=== PATIENT | female | born 1965 | race Caucasian/White ===

== ENCOUNTER 2016-11-25 08:33 | Outpatient (CLI) | payer OTHER | END 2016-11-25 08:34 | disposition home or self-care (01) | DX: Z12.31 Encounter for screening mammogram for malignant neoplasm of breast (principal) ==

== ENCOUNTER 2017-05-09 02:29 | Observation (INO) | payer OTHER ==
--- NOTE | 2017-05-09 02:43 | ED Physician Documentation ---
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 No: Diaphoresis, Nausea, Vomiting, Feeling faint / dizzy, General Weakness, Palpitations, Cough Similar symptoms before: Has not had sx before Recently seen: Not recently seen Review of Systems Constitutional: reports: Reviewed and negative Eyes: reports: Reviewed and negative Ears: reports: Reviewed and negative Nose: reports: Reviewed and negative Throat: reports: Reviewed and negative Cardiac: reports: Chest pain / pressure, Pedal edema (occasional LLE edema over past few months). denies: Calf pain Respiratory: reports: Dyspnea. 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 - Present Medications Home Medications: Ambulatory Orders Medication Instructions Recorded Confirmed Aspirin [Aspir 81] 162 mg PO DAILY 04/30/15 05/09/17 Calcium Carbonate/Vitamin D3 1 tab PO DAILY 04/30/15 05/09/17 [Calcium 600 + D Tablet] Cinnamon Bark [Cinnamon] 500 mg PO DAILY 04/30/15 05/09/17 Fexofenadine [Eli] 180 mg PO DAILY PRN 04/30/15 05/09/17 Flaxseed Oil [Flax Seed Oil] 1,000 mg PO DAILY 04/30/15 05/09/17 Milk Thistle 175 mg PO DAILY 04/30/15 05/09/17 Multivitamin [Multivitamins] 1 each PO DAILY 04/30/15 05/09/17 Topiramate 50 mg PO BID 04/30/15 05/09/17 Turmeric Root Extract [Turmeric] 500 mg PO DAILY 04/30/15 05/09/17 Ubidecarenone [Coq-10] 100 mg PO DAILY 04/30/15 05/09/17 Estradiol 0.05 mg Patch [Climara] 1 patch TOP UD 05/09/17 05/09/17 Lidocaine Patch 5% [Lidoderm Patch] 1 patch TOP UD 05/09/17 05/09/17 Naratriptan HCl [Amerge] 1 tab PO PRN PRN 05/09/17 05/09/17 - Allergies Allergies/Adverse Reactions: Allergies Allergy/AdvReac Type Severity Reaction Status Date / Time Silk tape AdvReac Intermediate Redness Uncoded 05/09/17 05:01 - Social History Does the pt smoke?: No Smoking Status: Never smoker Does the pt drink ETOH?: Yes Does the pt have substance abuse?: No - Immunizations Immunizations are current?: Yes - POLST Patient has POLST: No PD ED PE NORMAL - Vitals Vital signs reviewed: Yes - General General: Alert and oriented X 3, Well developed/nourished, Other (painful distress) - HEENT HEENT: PERRL, EOMI, Moist mucous membranes - Neck Neck: Supple, no meningeal sign - Cardiac Cardiac: RRR, No murmur, No gallop, No rub - Respiratory Respiratory: No respiratory distress, Clear bilaterally - Abdomen Abdomen: Soft, Non tender - Derm Derm: Normal color, Warm and dry - Extremities Extremities: No edema - Neuro Neuro: Alert and oriented X 3 Results - Vitals Vitals: Vital Signs - 24 hr 05/09/17 05/09/17 02:32 03:45 Temperature 36.8 C Heart Rate 83 60 Respiratory 20 18 Rate Blood Pressure 132/78 H 128/59 L O2 Saturation 96 98 Oxygen O2 Source Room air - EKG (time done) No standard instances Rate: Rate (enter#) (54) Rhythm: NSR [place]: Normal Intervals: Normal [place] QRS: Normal Ischemia: Normal ST segments - Labs Labs: Laboratory Tests 05/09/17 05/09/17 05/09/17 02:40 02:40 02:40 WBC 8.2 RBC 4.09 L Hgb 12.4 Hct 36.7 L MCV 89.8 MCH 30.3 MCHC 33.7 RDW 14.3 Plt Count 206 MPV 9.6 Neut # 4.9 Lymph # 2.3 [place] # 0.7 Eos # 0.2 Baso # 0.0 Absolute Nucleated RBC 0.00 Nucleated RBCs 0.0 ESR D-Dimer 260.7 H Sodium 139 Potassium 3.3 L Chloride 107 Carbon Dioxide 24 Anion Gap 8.0 BUN 16 Creatinine 0.8 Estimated GFR (MDRD) 76 L Glucose 113 H Calcium 8.9 Magnesium Total Bilirubin 0.5 AST 25 ALT 19 Alkaline Phosphatase 68 Troponin I C-Reactive Protein Total Protein 6.8 Albumin 3.9 Globulin 2.9 Albumin/Globulin Ratio 1.3 Lipase 30 05/09/17 05/09/17 05/09/17 02:40 02:40 02:40 WBC RBC Hgb Hct MCV MCH MCHC RDW Plt Count MPV Neut # Lymph # [place] # Eos # Baso # Absolute Nucleated RBC Nucleated RBCs ESR 8 D-Dimer Sodium Potassium Chloride Carbon Dioxide Anion Gap BUN Creatinine Estimated GFR (MDRD) Glucose Calcium Magnesium Total Bilirubin AST ALT Alkaline Phosphatase Troponin I < 0.04 C-Reactive Protein 1.0 Total Protein Albumin Globulin Albumin/Globulin Ratio Lipase 05/09/17 02:40 WBC RBC Hgb Hct MCV MCH MCHC RDW Plt Count MPV Neut # Lymph # [place] # Eos # Baso # Absolute Nucleated RBC Nucleated RBCs ESR D-Dimer Sodium Potassium Chloride Carbon Dioxide Anion Gap BUN Creatinine Estimated GFR (MDRD) Glucose Calcium Magnesium 2.2 Total Bilirubin AST ALT Alkaline Phosphatase Troponin I C-Reactive Protein Total Protein Albumin Globulin Albumin/Globulin Ratio Lipase - Rads (name of study) chest xray Radiology: Prelim report reviewed, See rad report CT chest IV contrast Radiology: Prelim report reviewed, See rad report PD MEDICAL DECISION MAKING - ED course Complexity details: reviewed results, re-evaluated patient, considered differential, d/w patient ED course: Patient had partial and transient relief with 2mg IV morphine, but pain would consistently return when she would lay flat. 4mg IV morphine given prior to her CT scan, and upon returning from CT, patient was in obvious painful distress. I offered to give her more pain medication, but she declined, says she gets better if she sits straight up in the bed. Despite unremarkable w/u thus far, she becomes very symptomatic with lying down; will admit for further evaluation Departure - Departure Disposition: ED Place in Observation Clinical Impression: Chest pain Condition: Good Discharge Date/Time: 05/09/17 05:20
[2017-05-09] MEDS ORDERED: MORPHINE 2 MG/ML SYRINGE IVP STA ×2 (02:58→03:38)
[2017-05-09] MEDS ORDERED: MORPHINE 2 MG/ML SYRINGE ONE ×3 (03:01→05:16)
[2017-05-09 03:06] LABS: BASOPHILS % (AUTO) 0.3 %; EOSINOPHILS # (AUTO) 0.2 10^3/uL (0.0-0.7); EOSINOPHILS % (AUTO) 2.6 %; HCT - HEMATOCRIT 36.7 % (37.0-47.0); HGB - HEMOGLOBIN 12.4 g/dL (12.0-16.0); LYMPHOCYTES # (AUTO) 2.3 10^3/uL (1.5-3.5); LYMPHOCYTES % (AUTO) 28.6 %; MEAN CORPUSCULAR HEMOGLOBIN 30.3 pg (27.0-31.0); MEAN CORPUSCULAR HGB CONC 33.7 g/dL (32.0-36.0); MEAN CORPUSCULAR VOLUME 89.8 fL (81.0-99.0); MEAN PLATELET VOLUME 9.6 fL (7.9-10.8); MONOCYTES # (AUTO) 0.7 10^3/uL (0.0-1.0); MONOCYTES % (AUTO) 8.9 %; NEUTROPHILS # (AUTO) 4.9 10^3/uL (1.5-6.6); NEUTROPHILS % (AUTO) 59.6 %; RED BLOOD COUNT 4.09 10^6/uL (4.20-5.40); RED CELL DISTRIBUTION WIDTH 14.3 % (12.0-15.0); UNCORRECTED WHITE BLOOD COUNT 8.2 x10^3/uL; WHITE BLOOD COUNT 8.2 x10^3/uL (4.8-10.8)
[2017-05-09 03:19] LABS: ALBUMIN/GLOBULIN RATIO 1.3 (1.0-2.2); BILIRUBIN,TOTAL 0.5 mg/dL (0.2-1.0); CALCIUM 8.9 mg/dL (8.5-10.3); CREATININE 0.8 mg/dL (0.4-1.0); POTASSIUM 3.3 mmol/L (3.5-5.0); TOTAL PROTEIN 6.8 g/dL (6.7-8.2)
--- NOTE | 2017-05-09 03:27 | XRAY Preliminary Report ---
Exam: XR Chest 2 View PA/LAT IMPRESSION: Normal 2-view chest radiography. [facility] SITE ID: [id number]
--- NOTE | 2017-05-09 03:29 | XRAY Report ---
EXAM: CHEST RADIOGRAPHY EXAM DATE: 05/09/2017 03:15 AM. CLINICAL HISTORY: Chest pain. COMPARISON: 09/27/2011. TECHNIQUE: 2 views. FINDINGS: Lungs/Pleura: No focal opacities evident. No pleural effusion. No pneumothorax. Normal volumes. Mediastinum: Heart and mediastinal contours are unremarkable. Other: Multilevel degenerative changes within the spine. IMPRESSION: Normal 2-view chest radiography. [facility] Referring Provider Line: [phone] SITE ID: [id number]
[2017-05-09] MEDS ORDERED: IOPAMIDOL-300 100 ML VIAL IVP ONE (04:02)
--- NOTE | 2017-05-09 04:32 | CT Preliminary Report ---
Exam: CT Chest Angio (AORTA) IMPRESSION: 1. Aorta is without acute abnormality. 2. No incidental pulmonary embolism. 3. No acute pulmonary parenchymal abnormality. Mild biapical pleural and parenchymal scarring. [facility] SITE ID: [id number]
--- NOTE | 2017-05-09 04:35 | CT Report ---
EXAM: CT ANGIOGRAM CHEST EXAM DATE: 05/09/2017 04:05 AM. CLINICAL HISTORY: Chest pain along the right breast COMPARISON: None. TECHNIQUE: Routine helical imaging was performed through the chest in the arterial phase. IV contrast : Yes. Reconstructions: Coronal, sagittal, and 3D MIP reconstructions of the aorta. FINDINGS: Vascular Structures: Normal. No aneurysm, dissection, or significant atherosclerotic disease of the t horacic aorta. The visualized pulmonary arteries are within normal limits. Lungs/Pleura: No consolidation, nodules, or edema. No effusions or pneumothorax. Mediastinum: Normal. No cardiac enlargement or adenopathy. Upper Abdomen: There is a small low-density focus within the superior portion of liver segment 2, sta ble from the prior exam, representing a cyst. Bones: There is moderate multilevel degenerative change within the spine. No definite suspicious bony lesions are noted. IMPRESSION: 1. Aorta is without acute abnormality. 2. No incidental pulmonary embolism. 3. No acute pulmonary parenchymal abnormality. Mild biapical pleural and parenchymal scarring. [facility] Referring Provider Line: [phone] SITE ID: [id number]
[2017-05-09] MEDS ORDERED: ONDANSETRON ODT 4 MG TABLET TL PRN (04:46)
[2017-05-09] MEDS ORDERED: SODIUM CHLORIDE FLUSH 0.9% 10 ML SYRINGE IVP PRN (04:46)
[2017-05-09] MEDS ORDERED: ACETAMINOPHEN 325 MG TABLET PO PRN (04:46)
[2017-05-09] MEDS ORDERED: KETOROLAC 15 MG/ML VIAL IVP STA (04:53)
[2017-05-09] MEDS ORDERED: GI COCKTAIL 120 ML BOTTLE PO SCH (05:00)
--- NOTE | 2017-05-09 05:01 | HISTORY & PHYSICAL EXAMINATION ---
Chief Complaint - Chief Complaint Chief Complaint: chest pain Chest Pain Admission HPI - Admitted From Admitted from: ED - History Obtained From History obtained from: Patient - History of Present Illness HPI Comment/Other: patient is a 51-year-old white female who was in her normal state of heal until approximately 1:30 this morning. She was awakened from sleep by the sudden onset of severe right-sided, sharp, chest pain. She describes the pain as 10+ out of 10.. She presented to the emergency r for evaluation. She received several doses of IV MORPHINEWHICH BARELY HELPEDD_DIMER WAS ELEVATED< SO CT angiogram was performed.no PE or aneurysm is seen. The patient's pain has been poorly controlled, so she is being admitte for further workup and treatment. The pain is much worse if she tries to lay down or leans forward. It is best sitting or standing completely upright.. She notes she has had a nonproductive cough for the last few days. The pain is mainly in her right up Upper chest and radiates into her upper back. She denies recent fever or chills, headaches or dizziness, new eye or ear symptoms. She denies sore throat. She denies palpitations or shortness Of breath. She denies abdominal pain, nausea or vomiting, heartburn,, diarrhea or constipation, dysuria. past medical history: Hysterectomy Arthritis, chronic back pain, followed by orthopedics.. On no pain medications. History of urethroplasty with , 2014 Status post arthroscopic surgery, colonoscopy, tubal ligation Migraines Allergies to grass, animals,, etc. Medications: Amerge one tab when necessary headache Lidoderm patch daily Estradiol patch 0.05 mg Topamax 50 mg twice a day Eli 180 mg daily when necessary Aspirin 162 mg daily Coenzyme Q10 100 mg daily Turmeric 500 mg daily Multivitamin daily B12 daily milk thistle 175 mg daily Flax oil 1000 mg daily Cinnamon bark 500 mg daily Calciu plus D1 daily patient reports she does not take HCTZ Allergies: Silk tape, grasses, trees, and animal dander, et cetera. Family history:mother with renal cancer, and adrenal problems.. Father with esophageal cancer. Brother had thyroid and bone cancer. Social history: She drinks wine occasionally, about 5 glasses per week.. She denies drug use. She previously smoked, but quit 30 years ago. 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 - Social History Does the pt smoke?: No Smoking Status: Former smoker Does the pt drink ETOH?: Yes ETOH Use: Wine Does the pt have substance abuse?: No - POLST Patient has POLST: No - Family History Family History: Mother: , Cancer, Father: , Cancer, Brother: Cancer Meds/Allgy - Home Medications Home Medications: Ambulatory Orders Medication Instructions Recorded Confirmed Aspirin [Aspir 81] 162 mg PO DAILY 04/30/15 05/09/17 Calcium Carbonate/Vitamin D3 1 tab PO DAILY 04/30/15 05/09/17 [Calcium 600 + D Tablet] Cinnamon Bark [Cinnamon] 500 mg PO DAILY 04/30/15 05/09/17 Fexofenadine [Eli] 180 mg PO DAILY PRN 04/30/15 05/09/17 Flaxseed Oil [Flax Seed Oil] 1,000 mg PO DAILY 04/30/15 05/09/17 Milk Thistle 175 mg PO DAILY 04/30/15 05/09/17 Multivitamin [Multivitamins] 1 each PO DAILY 04/30/15 05/09/17 Topiramate 50 mg PO BID 04/30/15 05/09/17 Turmeric Root Extract [Turmeric] 500 mg PO DAILY 04/30/15 05/09/17 Ubidecarenone [Coq-10] 100 mg PO DAILY 04/30/15 05/09/17 Estradiol 0.05 mg Patch [Climara] 1 patch TOP UD 05/09/17 05/09/17 Lidocaine Patch 5% [Lidoderm Patch] 1 patch TOP UD 05/09/17 05/09/17 Naratriptan HCl [Amerge] 1 tab PO PRN PRN 05/09/17 05/09/17 - Allergies Allergies/Adverse Reactions: Allergies Allergy/AdvReac Type Severity Reaction Status Date / Time Silk tape AdvReac Intermediate Redness Uncoded 05/09/17 05:01 Exam - Vital Signs Reviewed Vital Signs: Yes Vital Signs: Vital Signs x48h Temp Pulse Resp BP Pulse Ox 05/09/17 04:50 58 L 16 97 05/09/17 03:45 60 18 128/59 L 98 05/09/17 02:32 36.8 C 83 20 132/78 H 96 on exam, the patient is sitting bolt upright in bed .. Head: Normocephalic, atraumatic. Eyes: PERRLA,, EOMI, anicteric. Ears: TMs and canals are normal. Pharynx: Is clear. Mucosa is normal. Neck: Is supple, without obvious lymphadenopathy, JVD, thyromegaly, bruits. Cardiac exam: Shows regular rate and rhythm, with normal S1 and S2. No murmurs, rubs, gallops are noted,, the patient could not cooperate with position changes. Lungs: Are clear to auscultation, without rales, rhonchi,, wheezes. Abdomen: Is soft and nontender, with normal bowel sounds. There is no guarding or rebound, and no obvious masses. Extremities: Show no cyanosis, clubbing, edema. Neurologic: Patient is alert and oriented. She is quite irritable.. Otherwise, exam is grossly nonfocal. Results - Lab Results Lab results reviewed: Yes Fish Bones: 05/09/17 02:40 05/09/17 02:40 Other Lab Results: Lab Results x24hrs 05/09/17 05/09/17 05/09/17 Range/Units 02:40 02:40 02:40 WBC (4.8-10.8) x10^3/uL RBC (4.20-5.40) 10^6/uL Hgb (12.0-16.0) g/dL Hct (37.0-47.0) % MCV (81.0-99.0) fL MCH (27.0-31.0) pg MCHC (32.0-36.0) g/dL RDW (12.0-15.0) % Plt Count (130-450) 10^3/uL MPV (7.9-10.8) fL Neut # (1.5-6.6) 10^3/uL Lymph # (1.5-3.5) 10^3/uL [place] # (0.0-1.0) 10^3/uL Eos # (0.0-0.7) 10^3/uL Baso # (0.0-0.1) 10^3/uL Absolute Nucleated RBC x10^3/uL Nucleated RBCs /100WBC D-Dimer (200.0-255.0) ng/mL Sodium 139 (135-145) mmol/L Potassium 3.3 L (3.5-5.0) mmol/L Chloride 107 (101-111) mmol/L Carbon Dioxide 24 (21-32) mmol/L Anion Gap 8.0 (6-13) BUN 16 (6-20) mg/dL Creatinine 0.8 (0.4-1.0) mg/dL Estimated GFR (MDRD) 76 L (>89) Glucose 113 H (70-100) mg/dL Calcium 8.9 (8.5-10.3) mg/dL Total Bilirubin 0.5 (0.2-1.0) mg/dL AST 25 (10-42) IU/L ALT 19 (10-60) IU/L Alkaline Phosphatase 68 (42-121) IU/L Troponin I < 0.04 (<0.49) ng/mL C-Reactive Protein 1.0 (0-1.0) mg/dL Total Protein 6.8 (6.7-8.2) g/dL Albumin 3.9 (3.2-5.5) g/dL Globulin 2.9 (2.1-4.2) g/dL Albumin/Globulin Ratio 1.3 (1.0-2.2) Lipase 30 (22-51) U/L 05/09/17 05/09/17 Range/Units 02:40 02:40 WBC 8.2 (4.8-10.8) x10^3/uL RBC 4.09 L (4.20-5.40) 10^6/uL Hgb 12.4 (12.0-16.0) g/dL Hct 36.7 L (37.0-47.0) % MCV 89.8 (81.0-99.0) fL MCH 30.3 (27.0-31.0) pg MCHC 33.7 (32.0-36.0) g/dL RDW 14.3 (12.0-15.0) % Plt Count 206 (130-450) 10^3/uL MPV 9.6 (7.9-10.8) fL Neut # 4.9 (1.5-6.6) 10^3/uL Lymph # 2.3 (1.5-3.5) 10^3/uL [place] # 0.7 (0.0-1.0) 10^3/uL Eos # 0.2 (0.0-0.7) 10^3/uL Baso # 0.0 (0.0-0.1) 10^3/uL Absolute Nucleated RBC 0.00 x10^3/uL Nucleated RBCs 0.0 /100WBC D-Dimer 260.7 H (200.0-255.0) ng/mL Sodium (135-145) mmol/L Potassium (3.5-5.0) mmol/L Chloride (101-111) mmol/L Carbon Dioxide (21-32) mmol/L Anion Gap (6-13) BUN (6-20) mg/dL Creatinine (0.4-1.0) mg/dL Estimated GFR (MDRD) (>89) Glucose (70-100) mg/dL Calcium (8.5-10.3) mg/dL Total Bilirubin (0.2-1.0) mg/dL AST (10-42) IU/L ALT (10-60) IU/L Alkaline Phosphatase (42-121) IU/L Troponin I (<0.49) ng/mL C-Reactive Protein (0-1.0) mg/dL Total Protein (6.7-8.2) g/dL Albumin (3.2-5.5) g/dL Globulin (2.1-4.2) g/dL Albumin/Globulin Ratio (1.0-2.2) Lipase (22-51) U/L EKG:shows normal sinus rhythm at a rate of 54. There are no obvious acute ST-T changes chest x-ray:Normal. Chest CT angiogram:mild biapical pleural and parenchymal scarring. No PE. Aorta normal. ARRA - Anticipated LOS Anticipated Stay Length: Less than 2 midnights - AMI - Statin at Admit Aspirin Prescribed on Admit: Yes CP/CHF Plan - Echo Plan to order an echo?: Yes - Plan Patient Problems: All Active Problems Chest pain (Acute) Plan: #1. Chest pain. History this patient presents with sharp chest pain,, worse on the right side. CT scan shows no evidence of PE or aneurysm, or other significant abnormality. The patient continued to have severe chest pain in the emergency room. -Admit for observation and further Workup. -pot reliner. -Check serial EKGs and troponins. -Trial IV Toradol. -Echocardiogram. ( previous echo was done [address] [facility] in [place].) -GI cocktail, and daily Protonix. Consider further GI workup if cardiac workup unrevealing. family history is positive for esophageal cancer #2. Psychiatric. Patient reported increased anxiety lately.she is quite irritable today,, but is also quite uncomfortable. #3. Chronic pain. patient denies use of medications at home for this. She is followed by orthopedics. #4. Hypertension. patient denies history of this, and does not take HCTZ. #5. Hypokalemia. -of uncertain cause. Replace. -Replace IV. #6. Hematologic. Patient is mildly anemic. -Check stool cards. #7. CODE STATUS:a full code. #8. DVT prophylaxis: Subcutaneous heparin. tthis visit took approximately 60 minutes,, to review patient's old records, current test results, review case with the ER MKristen,, interview and examine the patient,, and write orders.
[2017-05-09] MEDS ORDERED: KETOROLAC 30 MG/ML VIAL ONE (05:15)
[2017-05-09] MEDS ORDERED: MAG HYDROX/AL HYDROX/SIMETH 30 ML UDC ONE ×2 (05:16→05:43)
[2017-05-09] MEDS: MORPHINE 2 MG/ML SYRINGE IVP PRN ×2 (05:17→09:08)
[2017-05-09] MEDS ORDERED: PHENobarb/HYOSCY/ATROPINE/SCOP 5 ML SYRINGE PO ONE (05:43)
[2017-05-09] MEDS ORDERED: LIDOCAINE VISCOUS 2% 15 ML UDC MM ONE (05:43)
[2017-05-09] MEDS: SODIUM CHLORIDE FLUSH 0.9% 10 ML SYRINGE IVP SCH ×2 (06:17→12:44)
[2017-05-09] MEDS ORDERED: PANTOPRAZOLE 40 MG TABLET PO SCH (07:00)
[2017-05-09 08:57] VITALS: BP 102/62
[2017-05-09] MEDS ORDERED: HEPARIN 5,000 UNIT/ML VIAL SUBQ SCH (09:00)
[2017-05-09] MEDS ORDERED: POTASSIUM CHLOR 10 MEQ/100 ML 100 ML IV SCH (09:00)
[2017-05-09] MEDS ORDERED: metOLazone 2.5 MG TABLET PO SCH (10:00)
[2017-05-09] MEDS ORDERED: KETOROLAC 30 MG/ML VIAL IVP PRN (10:03)
[2017-05-09] MEDS ORDERED: POTASSIUM CHLORIDE 10 MEQ CAPSULE PO SCH (12:00)
[2017-05-09] MEDS ORDERED: ACETAMINOPHEN 1,000 MG/100 ML 100 ML IV SCH (12:00)
--- NOTE | 2017-05-09 15:17 | Discharge Plan ---
Discharge Plan Disposition: 01 Home, Self Care Condition: Good Prescriptions: Naproxen [Naprosyn] 500 mg PO BID #15 tablet Diet: Regular Activity Restrictions: Activity as Tolerated Shower Restrictions: No Driving Restrictions: No Weight Bearing: Full Weight Additional Instructions or Follow Up instructions: Use the Naprosyn 500 mg three times a day for two more days and then 2 times a dy for 5-7 days. Use heat if needed. Use a cough suppressant as needed. Follow up here or with a provider if not getting better. No Smoking: If you smoke, Please STOP! Call for help.
--- NOTE | 2017-05-10 18:33 | DISCHARGE SUMMARY ---
DATE OF ADMISSION: 05/09/2017 DATE OF DISCHARGE: 05/09/2017 PRIMARY CARE PROVIDER: None in the area. ADMISSION DIAGNOSES: 1. Chest pain. 2. Anxiety. 3. Hypertension. 4. Hypokalemia. 5. Mild anemia. 6. Hypertension. DISCHARGE DIAGNOSES: 1. Chest pain, myocardial infarction ruled out. 2. Pleuritis undetermined etiology, possible inhalation. 3. Anxiety. 4. Chronic pain. 5. Hypertension. 6. Hypokalemia with replacement. 7. Mild anemia undetermined etiology, very mild, not clinically significant. HOSPITAL COURSE AND MANAGEMENT: The initial presentation, hospital emergency evaluation and hospital plan is well described in the History and Physical, see copy of same. Added history: The patient states that pain did start at the middle of the night and was localized to the right upper anterior rib cage in a small area and she had extremely intense pain with coughing, but pain all the time. It was a severe, sharp pain. The patient had the workup noted in the emergency department including a CTA of the chest which was negative. The patient had improvement from the Toradol given, she was also given intravenous Tylenol. The patie nt had negative troponin's x2. The patient had Naprosyn 500 at home and she is going to take this. The patient is examined on the day of discharge and found no other abnormalities, in particular there was no pleural friction rub, no rales or rhonchi on lung exam. Heart exam normal sinus without murmu r. Patient also had an echocardiogram which was normal and preliminary echocardiogram showed an EF of 70-75% with normal diastolic function. She did have moderate to severe increase in left atrial volum e and moderate to severe right atrial enlargement. No clinically significant valvular disease. The patient is discharged home. Time spent less than 30 minutes. The patient is referred to PCP, if her symptoms get worse she is to return here promptly. She said [facility]on [facility] will, she just lives around the corner. JOB #: [id number] EXT JOB #:[id number]
== END 2017-05-09 15:45 | disposition home or self-care (01) ==
LOC: ED 02:29 → MS 04:46 → OBS 08:27
PROVIDERS: ADMIT Internal Medicine; ATTEND Internal Medicine
DX: R07.81 Pleurodynia (principal); R09.1 Pleurisy; I11.9 Hypertensive heart disease without heart failure; Z79.82 Long term (current) use of aspirin; F41.9 Anxiety disorder, unspecified; G89.29 Other chronic pain; E87.6 Hypokalemia; Z87.891 Personal history of nicotine dependence; Z80.0 Family history of malignant neoplasm of digestive organs
CPT/HCPCS: 36415; 71020; 71275; 80053; 83690; 83735; 84484; 85025; 85379; 85651; 86140; 93005; 93306; 96374; 96375; 96376; 99234; 99284; 99285; A9270; J0131; Q9967; 82270

== ENCOUNTER 2017-07-22 14:33 | Outpatient (CLI) | payer OTHER ==
[2017-07-22 13:07] LABS: BASOPHILS % (AUTO) 0.7 %; EOSINOPHILS # (AUTO) 0.1 10^3/uL (0.0-0.7); EOSINOPHILS % (AUTO) 2.5 %; HCT - HEMATOCRIT 37.7 % (37.0-47.0); HGB - HEMOGLOBIN 12.6 g/dL (12.0-16.0); LYMPHOCYTES # (AUTO) 1.5 10^3/uL (1.5-3.5); LYMPHOCYTES % (AUTO) 34.1 %; MEAN CORPUSCULAR HEMOGLOBIN 30.2 pg (27.0-31.0); MEAN CORPUSCULAR HGB CONC 33.4 g/dL (32.0-36.0); MEAN CORPUSCULAR VOLUME 90.4 fL (81.0-99.0); MEAN PLATELET VOLUME 10.5 fL (7.9-10.8); MONOCYTES # (AUTO) 0.3 10^3/uL (0.0-1.0); MONOCYTES % (AUTO) 7.5 %; NEUTROPHILS # (AUTO) 2.4 10^3/uL (1.5-6.6); NEUTROPHILS % (AUTO) 55.2 %; RED BLOOD COUNT 4.17 10^6/uL (4.20-5.40); UNCORRECTED WHITE BLOOD COUNT 4.4 x10^3/uL; WHITE BLOOD COUNT 4.4 x10^3/uL (4.8-10.8)
[2017-07-22 13:22] LABS: ALBUMIN/GLOBULIN RATIO 1.6 (1.0-2.2); BILIRUBIN,TOTAL 0.5 mg/dL (0.2-1.0); BUN - BLOOD UREA NITROGEN 19 mg/dL (6-20); CALCIUM 9.1 mg/dL (8.5-10.3); CARBON DIOXIDE - CO2 27 mmol/L (21-32); CHLORIDE 104 mmol/L (101-111); CHOL/HDL RATIO 3.4 (<4.4); CHOLESTEROL 206 mg/dL; CREATININE 0.7 mg/dL (0.4-1.0); GFR - MDRD 88 (>89); GLUCOSE 94 mg/dL (70-100); HDL CHOLESTEROL 61 mg/dL; LDL/HDL RATIO 2.1 (<4.4); POTASSIUM 4.1 mmol/L (3.5-5.0); SODIUM 139 mmol/L (135-145); TOTAL PROTEIN 6.7 g/dL (6.7-8.2); TRIGLYCERIDES 68 mg/dL; VLDL CHOLESTEROL 14 mg/dL
== END 2017-07-22 14:34 | disposition home or self-care (01) ==
LOC: LAB.R 14:33
PROVIDERS: ATTEND Nurse Practitioner Primary Care
DX: Z00.00 Encounter for general adult medical examination without abnormal findings (principal); R50.9 Fever, unspecified; Z72.89 Other problems related to lifestyle; R09.1 Pleurisy; E87.6 Hypokalemia; Z79.899 Other long term (current) drug therapy; E78.5 Hyperlipidemia, unspecified
CPT/HCPCS: 80053; 80061; 84443; 85025; 86803

== ENCOUNTER 2018-03-28 10:10 | Outpatient (CLI) | payer OTHER | END 2018-03-28 10:11 | disposition home or self-care (01) | LOC: DI 10:10 | PROVIDERS: ATTEND Nurse Practitioner Primary Care | DX: Z53.9 Procedure and treatment not carried out, unspecified reason (principal) ==

== ENCOUNTER 2018-07-25 08:00 | Outpatient (CLI) | payer OTHER ==
[2018-07-25 16:45] LABS: BASOPHILS % (AUTO) 0.6 %; EOSINOPHILS # (AUTO) 0.1 10^3/uL (0.0-0.7); EOSINOPHILS % (AUTO) 2.8 %; HGB - HEMOGLOBIN 13.3 g/dL (12.0-16.0); LYMPHOCYTES # (AUTO) 1.4 10^3/uL (1.5-3.5); LYMPHOCYTES % (AUTO) 31.6 %; MEAN CORPUSCULAR HEMOGLOBIN 30.3 pg (27.0-31.0); MEAN CORPUSCULAR HGB CONC 33.2 g/dL (32.0-36.0); MEAN CORPUSCULAR VOLUME 91.5 fL (81.0-99.0); MEAN PLATELET VOLUME 10.9 fL (7.9-10.8); MONOCYTES # (AUTO) 0.3 10^3/uL (0.0-1.0); MONOCYTES % (AUTO) 7.6 %; NEUTROPHILS # (AUTO) 2.5 10^3/uL (1.5-6.6); NEUTROPHILS % (AUTO) 57.4 %; PLT - PLATELET COUNT 170 10^3/uL (130-450); RED BLOOD COUNT 4.37 10^6/uL (4.20-5.40); RED CELL DISTRIBUTION WIDTH 13.9 % (12.0-15.0); WHITE BLOOD COUNT 4.4 x10^3/uL (4.8-10.8)
[2018-07-25 16:59] LABS: ALBUMIN 4.3 g/dL (3.2-5.5); ALBUMIN/GLOBULIN RATIO 1.6 (1.0-2.2); ALKALINE PHOSPHATASE 68 IU/L (42-121); ALT ALANINE AMINOTRANSFERASE 18 IU/L (10-60); AST ASPARTATE AMINOTRANSFERASE 20 IU/L (10-42); BILIRUBIN,TOTAL 0.8 mg/dL (0.2-1.0); BUN - BLOOD UREA NITROGEN 17 mg/dL (6-20); CALCIUM 9.1 mg/dL (8.5-10.3); CARBON DIOXIDE - CO2 25 mmol/L (21-32); CHLORIDE 106 mmol/L (101-111); CHOL/HDL RATIO 3.2 (<4.4); CHOLESTEROL 199 mg/dL; CREATININE 0.8 mg/dL (0.4-1.0); GFR - MDRD 75 (>89); GLUCOSE 98 mg/dL (70-100); HDL CHOLESTEROL 63 mg/dL; LDL CHOLESTEROL,CALCULATED 118 mg/dL; LDL/HDL RATIO 1.9 (<4.4); SODIUM 139 mmol/L (135-145); VLDL CHOLESTEROL 18 mg/dL
== END 2018-07-25 08:01 ==
LOC: LAB.R 08:00
PROVIDERS: ATTEND Nurse Practitioner Primary Care
DX: Z79.899 Other long term (current) drug therapy (principal); E78.5 Hyperlipidemia, unspecified
CPT/HCPCS: 80053; 80061; 83721; 85025

== ENCOUNTER 2019-02-23 08:10 | Outpatient (CLI) | payer OTHER ==
--- NOTE | 2019-02-26 09:03 | Mammography Report ---
Reason: SCREENING MAMMO Procedure Date: 02/23/2019 Accession Number: [id number] / [id number] Procedure: KAIT - Screening Mammo w/Keyshawn CPT Code: FULL RESULT: EXAM: Screening Mammo w/Keyshawn DATE: 02/23/2019 8:39 AM CLINICAL HISTORY: Routine screening. No reported personal or family history of breast cancer. TECHNIQUE: (B) - Bilateral CC and MLO views were obtained. COMPARISON: 11/25/2016 through 06/13/2009 PARENCHYMAL PATTERN: (A) - The breasts demonstrate scattered fibroglandular densities bilaterally. FINDINGS: Bilateral breasts There are no suspicious masses, calcifications, or areas of distortion. IMPRESSION: Negative examination. BI-RADS category 1. RECOMMENDATION: (ANNUAL) - Recommend routine annual screening mammography. BI-RADS CATEGORY: (1) - Negative. STANDARD QUALIFYING STATEMENTS: 1. This examination was not reviewed with the aid of Computer-Aided Detection (CAD). 2. A negative or benign imaging report should not preclude biopsy if clinically suspicious findings are present. 3. Dense breasts may obscure an underlying neoplasm. 4. This examination was reviewed with the aid of 3D breast imaging (tomosynthesis).
== END 2019-02-23 08:11 | disposition home or self-care (01) ==
LOC: DI 08:10
PROVIDERS: ATTEND Obstetrics & Gynecology
DX: Z12.31 Encounter for screening mammogram for malignant neoplasm of breast (principal)
CPT/HCPCS: 77063; 77067

== ENCOUNTER 2019-06-11 15:15 | Outpatient (CLI) | payer OTHER ==
[2019-06-11 15:46] LABS: BASOPHILS % (AUTO) 0.7 %; EOSINOPHILS # (AUTO) 0.1 10^3/uL (0.0-0.7); EOSINOPHILS % (AUTO) 1.1 %; HGB - HEMOGLOBIN 13.1 g/dL (12.0-16.0); LYMPHOCYTES % (AUTO) 31.9 %; MEAN CORPUSCULAR HEMOGLOBIN 30.6 pg (27.0-31.0); MEAN CORPUSCULAR HGB CONC 32.8 g/dL (32.0-36.0); MEAN CORPUSCULAR VOLUME 93.2 fL (81.0-99.0); MEAN PLATELET VOLUME 11.3 fL (7.9-10.8); MONOCYTES # (AUTO) 0.4 10^3/uL (0.0-1.0); MONOCYTES % (AUTO) 6.5 %; NEUTROPHILS # (AUTO) 3.6 10^3/uL (1.5-6.6); NEUTROPHILS % (AUTO) 59.5 %; PLT - PLATELET COUNT 176 10^3/uL (130-450); RED BLOOD COUNT 4.28 10^6/uL (4.20-5.40); WHITE BLOOD COUNT 6.1 x10^3/uL (4.8-10.8)
[2019-06-11 16:11] LABS: CALCIUM 9.7 mg/dL (8.5-10.3); CREATININE 0.7 mg/dL (0.4-1.0)
== END 2019-06-11 15:16 | disposition home or self-care (01) ==
LOC: EEVIPCON 15:15 → LAB 15:15
PROVIDERS: ATTEND Family Medicine
DX: E87.6 Hypokalemia (principal)
CPT/HCPCS: 36415; 80048; 85025

== ENCOUNTER 2019-11-12 12:08 | Outpatient (CLI) | payer OTHER ==
--- NOTE | 2019-11-13 12:56 | XRAY Report ---
Reason: RT HIP ARTHRALGIA, LT ULNAR NEURITIS Procedure Date: 11/12/2019 Accession Number: [id number] / [id number] Procedure: XR - Elbow 3 View LT CPT Code: Final Report FULL RESULT: EXAM: LEFT ELBOW RADIOGRAPHY EXAM DATE: 11/12/2019 12:13 PM. CLINICAL HISTORY: RT HIP ARTHRALGIA, LT ULNAR NEURITIS. COMPARISON: None. TECHNIQUE: 3 views. FINDINGS: Bones: Normal. No fractures or bone lesions. Joints: Normal. No effusion. No subluxation. Soft Tissues: Normal. No soft tissue swelling. IMPRESSION: Normal elbow radiography. [facility]
--- NOTE | 2019-11-13 12:56 | XRAY Report ---
Reason: RT HIP ARTHRALGIA, LT ULNAR NEURITIS Procedure Date: 11/12/2019 Accession Number: [id number] / [id number] Procedure: XR - Hip w/Pelvis 2-3V RT CPT Code: Final Report FULL RESULT: EXAM: RIGHT HIP RADIOGRAPHY EXAM DATE: 11/12/2019 12:13 PM. CLINICAL HISTORY: RT HIP ARTHRALGIA, LT ULNAR NEURITIS. COMPARISON: None. TECHNIQUE: 2 views. FINDINGS: Bones: Normal. No fractures or bone lesion. Joints: Normal alignment of bilateral hips. There is moderate bilateral hip joint space narrowing with osteophytes. T Soft Tissues: Normal. No soft tissue swelling. IMPRESSION: 1. No evidence for acute fracture or dislocation of the pelvis or hip. 2. Moderate bilateral hip joint osteoarthritis noted. [facility]
== END 2019-11-12 12:09 | disposition home or self-care (01) ==
LOC: DI 12:08
PROVIDERS: ATTEND Family Medicine
DX: M16.0 Bilateral primary osteoarthritis of hip (principal); G56.22 Lesion of ulnar nerve, left upper limb

== ENCOUNTER 2020-04-14 08:00 | Outpatient (CLI) | payer OTHER | END 2020-04-14 23:59 | disposition home or self-care (01) | LOC: LAB 08:00 | PROVIDERS: ATTEND Family Medicine | DX: Z11.59 Encounter for screening for other viral diseases (principal) | CPT/HCPCS: 81599 ==

== ENCOUNTER 2020-04-26 09:45 | Emergency (ER) | payer OTHER ==
[2020-04-26 09:55] VITALS: BP 148/73
[2020-04-26] MEDS ORDERED: TETANUS/DIPHTHERIA/PERTUSSIS 0.5 ML SYRINGE IM ONE (10:35)
--- NOTE | 2020-04-26 10:36 | ED Physician Documentation ---
PD HPI UPPER EXT INJURY - Stated complaint Stated Complaint: R FINGER LAC - Chief complaint Chief Complaint: Laceration - History obtained from History obtained from: Patient - History of Present Illness Location: Left, Finger (5th) Type of injury: Laceration Where injury occurred: Home Timing - onset: Today Timing - duration: Minutes Timing - details: Abrupt onset, Still present Improved by: Rest, Immobilization Worsened by: Moving, Palpating Associated symptoms: No: Weakness Contributing factors: No: Anticoagulated Similar symptoms before: Has not had sx before Recently seen: Not recently seen - Additonal information Additional information: Previously well 34-year-old female was using a knife to prepare some food at home today when she sliced off the tip of her finger. She has been able to control the bleeding with direct pressure and has some pain she thinks she has had a tetanus booster more than 5 years ago. 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: Tubal ligation - Present Medications Home Medications: Ambulatory Orders Medication Instructions Recorded Confirmed Aspirin [Aspir 81] 162 mg PO DAILY 04/30/15 05/09/17 Calcium Carbonate/Vitamin D3 1 tab PO DAILY 04/30/15 05/09/17 [Calcium 600 + D Tablet] Cinnamon Bark [Cinnamon] 500 mg PO DAILY 04/30/15 05/09/17 Fexofenadine [Eli] 180 mg PO DAILY PRN 04/30/15 05/09/17 Flaxseed Oil [Flax Seed Oil] 1,000 mg PO DAILY 04/30/15 05/09/17 Milk Thistle 175 mg PO DAILY 04/30/15 05/09/17 Multivitamin [Multivitamins] 1 each PO DAILY 04/30/15 05/09/17 Topiramate 50 mg PO BID 04/30/15 05/09/17 Turmeric Root Extract [Turmeric] 500 mg PO DAILY 04/30/15 05/09/17 Ubidecarenone [Coq-10] 100 mg PO DAILY 04/30/15 05/09/17 Estradiol 0.05 mg Patch [Climara 1 patch TOP UD 05/09/17 05/09/17 0.05 mg] Lidocaine Patch 5% [Lidoderm Patch] 1 patch TOP UD 05/09/17 05/09/17 Naproxen [Naprosyn] 500 mg PO BID #15 tablet 05/09/17 Naratriptan HCl [Amerge] 1 tab PO PRN PRN 05/09/17 05/09/17 - Allergies Allergies/Adverse Reactions: Allergies Allergy/AdvReac Type Severity Reaction Status Date / Time Silk tape AdvReac Intermediate Redness Uncoded 05/09/17 05:01 - Social History Does the pt smoke?: No Smoking Status: Never smoker Does the pt drink ETOH?: Yes Does the pt have substance abuse?: No - Immunizations Immunizations are current?: Yes - POLST Patient has POLST: No PD ED PE NORMAL - Vitals Vital signs reviewed: Yes (Hypertensive) - General General: Alert and oriented X 3, No acute distress, Well developed/nourished - HEENT HEENT: Atraumatic, PERRL, EOMI - Respiratory Respiratory: No respiratory distress - Extremities Extremities: Other (There is a sciv of of skin off the tip of the finger.) - Neuro Neuro: Alert and oriented X 3, primary care md 2-12 intact, No motor deficit, No sensory deficit, Normal speech Eye Opening: Spontaneous Motor: Obeys Commands Verbal: Oriented GCS Score: 15 - Psych Psych: Normal mood, Normal affect Results - Vitals Vitals: Vital Signs - 24 hr 04/26/20 09:52 Temperature 36.8 C Heart Rate 72 Respiratory 16 Rate Blood Pressure 148/73 H O2 Saturation 99 Oxygen O2 Source Room air PD MEDICAL DECISION MAKING - ED course Complexity details: considered differential, d/w patient ED course: 54-year-old female with a skin avulsion to the tip of the finger is given local local wound care and the dressing is placed. The patient is updated on her tetanus Departure - Departure Disposition: 01 Home, Self Care Clinical Impression: Avulsion of skin of finger Qualifiers: Encounter type: initial encounter Qualified Code(s): S61.209A - Unspecified open wound of unspecified finger without damage to nail, initial encounter Condition: Stable Instructions: ED Avulsion Dermal Follow-Up: Your, doctor [Other] Discharge Date/Time: 04/26/20 11:02
== END 2020-04-26 11:02 | disposition home or self-care (01) ==
LOC: ED 09:45
DX: S61.216A Laceration without foreign body of right little finger without damage to nail, initial encounter (principal); W26.0XXA Contact with knife, initial encounter; Y93.G1 Activity, food preparation and clean up; Y92.009 Unspecified place in unspecified non-institutional (private) residence as the place of occurrence of the external cause; Z23 Encounter for immunization; I10 Essential (primary) hypertension; Z79.82 Long term (current) use of aspirin
CPT/HCPCS: 90471; 99283; 99284

== ENCOUNTER 2020-05-12 13:12 | Outpatient (CLI) | payer OTHER | END 2020-05-12 13:13 | disposition home or self-care (01) | LOC: COV 13:12 | PROVIDERS: ATTEND Family Medicine | DX: Z01.812 Encounter for preprocedural laboratory examination (principal); Z20.828 Contact with and (suspected) exposure to other viral communicable diseases ==

== ENCOUNTER 2020-08-04 19:39 | Outpatient (CLI) | payer OTHER | END 2020-08-04 19:40 | disposition home or self-care (01) | LOC: COV 19:39 | PROVIDERS: ATTEND Family Medicine | DX: Z20.828 Contact with and (suspected) exposure to other viral communicable diseases (principal) ==

== ENCOUNTER 2020-08-15 15:40 | Outpatient (CLI) | payer OTHER | END 2020-08-15 15:41 | disposition home or self-care (01) | LOC: COV 15:40 | PROVIDERS: ATTEND Family Medicine | DX: Z20.828 Contact with and (suspected) exposure to other viral communicable diseases (principal) ==

== ENCOUNTER 2020-10-07 16:36 | Outpatient (CLI) | payer OTHER | END 2020-10-07 16:37 | disposition home or self-care (01) | LOC: COV 16:36 | PROVIDERS: ATTEND Family Medicine | DX: Z20.828 Contact with and (suspected) exposure to other viral communicable diseases (principal) ==

== ENCOUNTER 2020-11-14 15:00 | Outpatient (CLI) | payer OTHER | END 2020-11-14 23:59 | disposition home or self-care (01) | LOC: LAB.WCP 15:00 | PROVIDERS: ATTEND Physician Assistant Medical | DX: R35.0 Frequency of micturition (principal) | CPT/HCPCS: 87086; 87181 ==

== ENCOUNTER 2020-12-09 07:00 | Outpatient (CLI) | payer OTHER ==
[2020-12-09 10:09] LABS: BILIRUBIN,URINE NEGATIVE (NEGATIVE); GLUCOSE, URINE (UA) NEGATIVE (NEGATIVE); KETONES,URINE (UA) NEGATIVE (NEGATIVE); LEUKOCYTE ESTERASE, URINE NEGATIVE (NEGATIVE); NITRITE,URINE NEGATIVE (NEGATIVE); OCCULT BLOOD,URINE NEGATIVE (NEGATIVE); PROTEIN,URINE NEGATIVE (NEGATIVE); UROBILINOGEN,URINE 0.2 (NORMAL) E.U./dL (NORMAL)
[2020-12-09 10:13] LABS: CLARITY,URINE CLOUDY (CLEAR)
[2020-12-09 10:24] LABS: AMORPHOUS SEDIMENT,UR Few /LPF; BACTERIA,URINE Moderate /HPF (None Seen); RBC,URINE 0-5 /HPF (0-5); SQUAMOUS EPITHELIAL CELL,UR FEW Squamous (<= Few)
== END 2020-12-09 23:59 | disposition home or self-care (01) ==
LOC: LAB.R 07:00
PROVIDERS: ATTEND Physician Assistant Medical
DX: R35.0 Frequency of micturition (principal)
CPT/HCPCS: 81001; 87086

== ENCOUNTER 2020-12-26 08:00 | Outpatient (CLI) | payer OTHER | END 2020-12-26 23:59 | disposition home or self-care (01) | LOC: LAB.R 08:00 | PROVIDERS: ATTEND Nurse Practitioner | DX: N39.0 Urinary tract infection, site not specified (principal) | CPT/HCPCS: 87086 ==

== ENCOUNTER 2021-02-24 07:43 | Outpatient (CLI) | payer OTHER ==
--- NOTE | 2021-02-24 15:18 | CT Report ---
PROCEDURE: Abdomen/Pelvis WO INDICATIONS: UTI WIHTOUT HEMATURIA TECHNIQUE: Noncontrast 5 mm thick sections acquired from the diaphragms to the symphysis. 5 mm coronal and sagi ttal reformats were then performed. For radiation dose reduction, the following was used: automated exposure control, adjustment of mA and/or kV according to patient size. COMPARISON: 04/12/2014. FINDINGS: Image quality: Excellent. ABDOMEN: Lung bases: Lung bases are clear. Heart size is normal. Solid organs: Liver and spleen are normal in size. Gallbladder is within normal limits. Pancreas i s normal in contours. No adrenal nodules. Kidneys are normal in size, without hydronephrosis or nep hrolithiasis. Peritoneum and bowel: Unenhanced bowel loops demonstrate normal wall thickness and caliber. No free fluid or air. Mild fecal stasis in the colon is seen. Mild sigmoid diverticulosis is seen, no CT ev idence of acute diverticulitis. No evidence of acute appendicitis. No abscess collection. Nodes and vessels: No retroperitoneal or mesenteric adenopathy by size criteria. Aorta and inferior vena cava are normal in caliber. Miscellaneous: No ventral hernias. PELVIS: Genitourinary: Bladder wall thickness is normal. Miscellaneous: No inguinal hernias or adenopathy. Bones: No suspicious bony lesions. No vertebral body compression fractures. Mild degenerative disc disease at L4-5 and L5-S1 levels are seen. IMPRESSION: 1. No renal stone or hydronephrosis. No perinephric fat stranding or fluid. No gross abnormality is s een in bilateral ureters and urinary bladder. 2. Normal appendix. No bowel obstruction. No abnormal bowel wall thickening. Mild sigmoid diverticulo sis without evidence of acute diverticulitis. No free fluid or free air. Reviewed by: Remigio Johnson MD on 02/24/2021 3:17 PM PDT Approved by: Remigio Johnson MD on 02/24/2021 3:17 PM PDT Station ID: [id number]
== END 2021-02-24 07:44 | disposition home or self-care (01) ==
LOC: DI 07:43
PROVIDERS: ATTEND Urology
DX: K57.30 Diverticulosis of large intestine without perforation or abscess without bleeding (principal); R60.9 Edema, unspecified; E78.5 Hyperlipidemia, unspecified; N80.8 Other endometriosis; N39.0 Urinary tract infection, site not specified; F41.9 Anxiety disorder, unspecified; G62.9 Polyneuropathy, unspecified
CPT/HCPCS: 36415; 80053; 80061; 83721; 84443; 85025; 87086

== ENCOUNTER 2021-02-24 07:48 | Outpatient (CLI) | payer OTHER ==
[2021-02-24 08:09] LABS: BASOPHILS % (AUTO) 0.5 %; EOSINOPHILS # (AUTO) 0.1 10^3/uL (0.0-0.7); EOSINOPHILS % (AUTO) 2.6 %; HCT - HEMATOCRIT 39.6 % (37.0-47.0); HGB - HEMOGLOBIN 13.1 g/dL (12.0-16.0); LYMPHOCYTES # (AUTO) 1.6 10^3/uL (1.5-3.5); LYMPHOCYTES % (AUTO) 37.1 %; MEAN CORPUSCULAR HEMOGLOBIN 30.7 pg (27.0-31.0); MEAN CORPUSCULAR HGB CONC 33.1 g/dL (32.0-36.0); MEAN CORPUSCULAR VOLUME 92.7 fL (81.0-99.0); MEAN PLATELET VOLUME 11.1 fL (7.9-10.8); MONOCYTES # (AUTO) 0.4 10^3/uL (0.0-1.0); MONOCYTES % (AUTO) 8.9 %; NEUTROPHILS # (AUTO) 2.2 10^3/uL (1.5-6.6); NEUTROPHILS % (AUTO) 50.9 %; PLT - PLATELET COUNT 230 10^3/uL (130-450); RED BLOOD COUNT 4.27 10^6/uL (4.20-5.40); RED CELL DISTRIBUTION WIDTH 13.8 % (12.0-15.0); WHITE BLOOD COUNT 4.3 x10^3/uL (4.8-10.8)
[2021-02-24 08:25] LABS: ALBUMIN 4.7 g/dL (3.2-5.5); ALBUMIN/GLOBULIN RATIO 1.9 (1.0-2.2); ALKALINE PHOSPHATASE 66 IU/L (42-121); ALT ALANINE AMINOTRANSFERASE 16 IU/L (10-60); AST ASPARTATE AMINOTRANSFERASE 17 IU/L (10-42); BILIRUBIN,TOTAL 0.9 mg/dL (0.2-1.0); BUN - BLOOD UREA NITROGEN 20 mg/dL (6-20); CALCIUM 9.7 mg/dL (8.5-10.3); CARBON DIOXIDE - CO2 28 mmol/L (21-32); CHLORIDE 103 mmol/L (101-111); CHOL/HDL RATIO 3.9 (<4.4); CHOLESTEROL 242 mg/dL; CREATININE 0.8 mg/dL (0.4-1.0); GFR - MDRD 74 (>89); GLUCOSE 104 mg/dL (70-100); HDL CHOLESTEROL 62 mg/dL; LDL CHOLESTEROL,CALCULATED 162 mg/dL; LDL/HDL RATIO 2.6 (<4.4); POTASSIUM 4.4 mmol/L (3.5-5.0); SODIUM 141 mmol/L (135-145); TOTAL PROTEIN 7.2 g/dL (6.7-8.2); TRIGLYCERIDES 89 mg/dL; VLDL CHOLESTEROL 18 mg/dL
[2021-02-24 08:37] LABS: THYROID STIMULATING HORMONE 1.53 uIU/mL (0.34-5.60)
== END 2021-02-24 07:49 | disposition home or self-care (01) ==
LOC: LAB 07:48
PROVIDERS: ATTEND Family Medicine
DX: R60.9 Edema, unspecified (principal); E78.5 Hyperlipidemia, unspecified; N80.8 Other endometriosis; N39.0 Urinary tract infection, site not specified; F41.9 Anxiety disorder, unspecified; G62.9 Polyneuropathy, unspecified
CPT/HCPCS: 36415; 80053; 80061; 83721; 84443; 85025; 87086

== ENCOUNTER 2021-04-30 07:44 | Outpatient (CLI) | payer OTHER ==
[2021-04-30 15:35] LABS: FECAL OCCULT BLOOD (FIT) NEGATIVE (NEGATIVE)
== END 2021-04-30 07:45 | disposition home or self-care (01) ==
LOC: LAB 07:44
PROVIDERS: ATTEND Surgery
DX: R19.7 Diarrhea, unspecified (principal); Z12.11 Encounter for screening for malignant neoplasm of colon
CPT/HCPCS: 81599; 82274; 87045; 87177; 87209; 87427; 87449; 87493

== ENCOUNTER 2021-05-02 08:00 | Outpatient (CLI) | payer OTHER | END 2021-05-02 08:01 | disposition home or self-care (01) | LOC: LAB.R 08:00 | PROVIDERS: ATTEND Family Medicine | DX: R19.7 Diarrhea, unspecified (principal); Z12.11 Encounter for screening for malignant neoplasm of colon | CPT/HCPCS: 82270 ==

== ENCOUNTER 2021-05-05 07:36 | Outpatient (CLI) | payer OTHER ==
--- NOTE | 2021-05-06 15:13 | Mammography Report ---
BILATERAL DIGITAL SCREENING MAMMOGRAM 3D/2D: 05/05/2021 CLINICAL: Routine screening. Comparison is made to exams dated: 02/23/2019 mammogram, 11/25/2016 mammogram, 03/26/2015 mammogram, 10/18 mammogram, and 12/26/2010 mammogram - [facility]. There are scattered fibrog landular elements in both breasts. No significant masses, calcifications, or other findings are seen in either breast. There has been no significant interval change. IMPRESSION: NEGATIVE There is no mammographic evidence of malignancy. A 1 year screening mammogram is recommended. This exam was interpreted at Station ID: [id number]. NOTE: For mammograms, a report in lay terms will be sent to the patient. Approximately 15% of breast malignancies will not be visualized mammographically. In the management of a palpable breast mass, a negative mammogram must not discourage biopsy of a clinically suspicious lesion. Electronically Signed By: Thai Ortega M.D. ddp/penrad:05/05/2021 08:45:31 ACR BI-RADS Category 1: Negative 3341F PARENCHYMAL PATTERN: (A) - The breast(s) demonstrate(s) scattered fibroglandular densities. BI-RADS CATEGORY: (1) - 1 RECOMMENDATION: (ANNUAL) - Recommend routine annual screening mammography. [id number] 1 year screening LATERALITY: (B)
== END 2021-05-05 07:37 | disposition home or self-care (01) ==
LOC: DI 07:36
PROVIDERS: ATTEND Family Medicine
DX: Z12.31 Encounter for screening mammogram for malignant neoplasm of breast (principal)

== ENCOUNTER 2021-08-06 10:15 | Outpatient (CLI) | payer OTHER ==
--- NOTE | 2021-08-06 12:41 | XRAY Report ---
PROCEDURE: Lumbar Spine Complete INDICATIONS: LUMBAR RADICULOPATHY TECHNIQUE: 5 views of the lumbar spine were acquired. COMPARISON: None. FINDINGS: Bones: 5 [id number]-nutyuxo vertebrae are present. There is mild grade 1 retrolisthesis of L1 on L2 and of L2 on L3 secondary to degenerative disc disease. No vertebral body compression fractures. No rocco picious bony lesions. Disc space narrowing and degenerative endplate changes are seen at multiple le vels throughout the lumbar spine, slightly worse at L5-S1 level. Facet hypertrophy is seen at L3-4 th rough L5-S1. No gross defects are seen on oblique views. Soft tissues: Overlying bowel gas pattern is normal. No suspicious soft tissue calcifications. IMPRESSION: 1.Multilevel moderate spondylosis. 2.Degenerative grade 1 retrolisthesis of L1 on L2 and L2 on L3. Reviewed by: Alban Pitt MD on 08/06/2021 12:39 PM PDT Approved by: Alban Pitt MD on 08/06/2021 12:39 PM PDT Station ID: [id number]
== END 2021-08-06 10:16 | disposition home or self-care (01) ==
LOC: DI 10:15
PROVIDERS: ATTEND Family Medicine
DX: M47.26 Other spondylosis with radiculopathy, lumbar region (principal); M43.16 Spondylolisthesis, lumbar region; M51.16 Intervertebral disc disorders with radiculopathy, lumbar region; M48.061 Spinal stenosis, lumbar region without neurogenic claudication

== ENCOUNTER 2021-11-25 09:53 | Day surgery (SDC) | payer OTHER ==
[2021-11-25] MEDS ORDERED: LACTATED RINGERS 1,000 ML IV ONE (10:13)
--- NOTE | 2021-11-25 11:16 | ANESTHESIA ---
Pre-Anesthesia VS, & Labs - Diagnosis screening - Procedure colonoscopy Height: 5 ft 8 in Weight (kg): 82.4 kg Body Mass Index: 27.6 BMI Classification: Overweight - NPO >8 hours - Is Patient ?: No Home Medications and Allergies Home Medications: Ambulatory Orders Potassium Chloride 1 tab PO DAILY 11/24/21 Pregabalin [Lyrica] 150 mg PO DAILY 11/24/21 Aspirin [Aspir 81] 162 mg PO DAILY 04/30/15 Calcium Carbonate/Vitamin D3 [Calcium 600 + D Tablet] 1 tab PO DAILY 04/30/15 Fexofenadine [Eli] 180 mg PO DAILY PRN 04/30/15 Flaxseed Oil [Flax Seed Oil] 1,000 mg PO DAILY 04/30/15 Milk Thistle 175 mg PO DAILY 04/30/15 Multivitamin [Multivitamins] 1 each PO DAILY 04/30/15 Turmeric Root Extract [Turmeric] 500 mg PO DAILY 04/30/15 Lidocaine Patch 5% [Lidoderm Patch] 1 patch TOP UD 05/09/17 Potassium Chloride 1 tab PO DAILY 11/24/21 Pregabalin [Lyrica] 150 mg PO DAILY 11/24/21 Allergies/Adverse Reactions: Allergies Allergy/AdvReac Type Severity Reaction Status Date / Time Silk tape AdvReac Intermediate Redness Uncoded 11/25/21 10:27 Anes History & Medical History - Anesthetic History Anesthesia Complications: reports: No previous complications Family history of Anesthesia Complications: Denies Family history of Malignant Hyperthermia: Denies - Medical History Cardiovascular: reports: Hypertension, Other Pulmonary: reports: None Gastrointestinal: reports: None Urinary: reports: None Musculoskeletal: reports: Osteoarthritis, Chronic back pain Endocrine/Autoimmune: reports: None Skin: reports: None Smoking Status: Never smoker - Surgical History General: reports: Colonoscopy, Other Gynecologic: reports: Tubal ligation, Hysterectomy Orthopedic: reports: Arthroscopic surgery Exam General: Alert, Oriented x3, Cooperative Dental: WNL Mouth Openin Fingerbreadth Neck Mobility: Normal Mallampati classification: II Thyromental Distance: 4-6 cm Respiratory: Lungs clear Cardiovascular: Regular rate Plan Anesthesia Type: Total IV Consent for Procedure(s) Verified and Reviewed: No Code Status: Attempt Resuscitation ASA classification: 2-Mild systemic disease Is this case an emergency?: No
[2021-11-25] MEDS ORDERED: LACTATED RINGERS 500 ML IV ONE (11:59)
[2021-11-25 12:30] VITALS: BP 138/82
== END 2021-11-25 09:54 | disposition home or self-care (01) ==
LOC: SDS 09:53
PROVIDERS: ATTEND Surgery
DX: Z12.11 Encounter for screening for malignant neoplasm of colon (principal); K64.8 Other hemorrhoids
CPT/HCPCS: 45378; J7120

== ENCOUNTER 2022-03-29 06:50 | Outpatient (CLI) | payer OTHER ==
[2022-03-29 07:24] LABS: BASOPHILS % (AUTO) 0.5 %; EOSINOPHILS # (AUTO) 0.2 10^3/uL (0.0-0.7); EOSINOPHILS % (AUTO) 2.8 %; HCT - HEMATOCRIT 39.5 % (37.0-47.0); LYMPHOCYTES # (AUTO) 1.5 10^3/uL (1.5-3.5); MEAN CORPUSCULAR HGB CONC 32.9 g/dL (32.0-36.0); MEAN PLATELET VOLUME 11.9 fL (7.9-10.8); MONOCYTES # (AUTO) 0.5 10^3/uL (0.0-1.0); MONOCYTES % (AUTO) 8.1 %; NEUTROPHILS # (AUTO) 3.7 10^3/uL (1.5-6.6); NEUTROPHILS % (AUTO) 63.4 %; PLT - PLATELET COUNT 206 10^3/uL (130-450); RED CELL DISTRIBUTION WIDTH 13.3 % (12.0-15.0); WHITE BLOOD COUNT 5.8 x10^3/uL (4.8-10.8)
[2022-03-29 07:32] LABS: ALBUMIN 4.3 g/dL (3.2-5.5); ALBUMIN/GLOBULIN RATIO 1.7 (1.0-2.2); ALKALINE PHOSPHATASE 64 IU/L (42-121); ALT ALANINE AMINOTRANSFERASE 18 IU/L (10-60); AST ASPARTATE AMINOTRANSFERASE 18 IU/L (10-42); BILIRUBIN,TOTAL 1.1 mg/dL (0.2-1.0); BUN - BLOOD UREA NITROGEN 17 mg/dL (6-20); CALCIUM 9.4 mg/dL (8.5-10.3); CARBON DIOXIDE - CO2 26 mmol/L (21-32); CHLORIDE 104 mmol/L (101-111); CHOL/HDL RATIO 3.6 (<4.4); CHOLESTEROL 221 mg/dL; CREATININE 0.7 mg/dL (0.4-1.0); CRP - C-REACTIVE PROTEIN < 1.0 mg/dL (0-1.0); GFR - MDRD 87 (>89); GLUCOSE 112 mg/dL (70-100); HDL CHOLESTEROL 61 mg/dL; LDL CHOLESTEROL,CALCULATED 136 mg/dL; LDL/HDL RATIO 2.2 (<4.4); POTASSIUM 4.2 mmol/L (3.5-5.0); SODIUM 140 mmol/L (135-145); TOTAL PROTEIN 6.8 g/dL (6.7-8.2); TRIGLYCERIDES 122 mg/dL; VLDL CHOLESTEROL 24 mg/dL
[2022-03-29 07:44] LABS: THYROID STIMULATING HORMONE 1.63 uIU/mL (0.34-5.60)
== END 2022-03-29 06:51 | disposition home or self-care (01) ==
LOC: LAB 06:50
PROVIDERS: ATTEND Family Medicine
DX: M54.16 Radiculopathy, lumbar region (principal); E78.5 Hyperlipidemia, unspecified; E87.6 Hypokalemia; G90.50 Complex regional pain syndrome I, unspecified; G43.909 Migraine, unspecified, not intractable, without status migrainosus
CPT/HCPCS: 36415; 80053; 80061; 83721; 84443; 85025; 85651; 86140

== ENCOUNTER 2022-05-03 23:49 | Emergency (ER) | payer OTHER ==
--- NOTE | 2022-05-04 00:38 | XRAY Report ---
PROCEDURE: Elbow 3 View LT INDICATIONS: Trauma TECHNIQUE: 3 views of the elbow were acquired. COMPARISON: None. FINDINGS: Bones: No fractures or dislocations. No suspicious bony lesions. Soft tissues: There is a small elbow joint effusion. No suspicious soft tissue calcifications. IMPRESSION: 1. No definite fracture or dislocation. 2. Small left elbow joint effusion. Reviewed by: Thai Hope MD on 05/04/2022 12:37 AM PDT Approved by: Thai Hope MD on 05/04/2022 12:37 AM PDT Station ID: [id number]
--- NOTE | 2022-05-04 00:46 | XRAY Report ---
PROCEDURE: Hand 3 View LT INDICATIONS: Trauma TECHNIQUE: 3 views of the hand acquired. COMPARISON: None. FINDINGS: Bones: Evaluation is limited due to positioning. There is dorsal dislocation of the third proximal i nterphalangeal joint. No definite fracture identified. No suspicious bony lesions. Soft tissues: No suspicious soft tissue calcifications. IMPRESSION: 1. Dorsal dislocation of the third PIP joint. Reviewed by: Thai Hope MD on 05/04/2022 12:45 AM PDT Approved by: Thai Hope MD on 05/04/2022 12:45 AM PDT Station ID: [id number]
[2022-05-04] MEDS ORDERED: oxyCODONE 5 MG TABLET PO STA (01:05)
[2022-05-04] MEDS ORDERED: oxyCODONE/ACET 5/325 Prepack 4 PO STA (01:19)
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
[2022-05-04 01:26] VITALS: BP 122/72
--- NOTE | 2022-05-04 01:38 | XRAY Report ---
PROCEDURE: Finger(s) LT INDICATIONS: post reduction TECHNIQUE: AP hand, 2 views of the third digit acquired. COMPARISON: Previous study from 05/04/2022. FINDINGS: Bones: There is interval reduction of the previously dislocated third proximal interphalangeal joint. No discrete fracture identified. No suspicious bony lesions. Soft tissues: No suspicious soft tissue calcifications. IMPRESSION: 1. Interval reduction of the previously dislocated third PIP joint. Reviewed by: Thai Hope MD on 05/04/2022 1:37 AM PDT Approved by: Thai Hope MD on 05/04/2022 1:37 AM PDT Station ID: [id number]
== END 2022-05-04 01:35 | disposition home or self-care (01) ==
LOC: ED 23:49
DX: I10 Essential (primary) hypertension (principal); S63.279A Dislocation of unspecified interphalangeal joint of unspecified finger, initial encounter; W01.0XXA Fall on same level from slipping, tripping and stumbling without subsequent striking against object, initial encounter; Y93.E5 Activity, floor mopping and cleaning; M25.522 Pain in left elbow
CPT/HCPCS: 26755; 73080; 73130; 73140; 99282; 99284; A9270

== ENCOUNTER 2022-09-10 09:25 | Outpatient (CLI) | payer OTHER ==
--- NOTE | 2022-09-10 11:34 | MRI Report ---
PROCEDURE: LUMBAR SPINE WO INDICATIONS: RIGHT HIP PAIN TECHNIQUE: Noncontrast sagittal T1 spin echo and T2 fast echo, sagittal STIR, axial T1 and T2 fast spin echo thr ough the lumbar spine. In cases with scoliosis, additional coronal T2 fast spin echo may be performe d. COMPARISON: Lumbar spine plain films dated 08/06/2021. FINDINGS: Image quality: Excellent. Alignment and Curvature: Trace degenerative retrolisthesis of L4 on L5. Bone Marrow: Marrow is of normal overall signal. No acute vertebral body compression fractures. Spinal Cord: Conus medullaris terminates at the L1 level. Visualized cord demonstrates normal signa l and size. Paraspinous Soft Tissues: No paravertebral masses. T11-T12: No canal stenosis or foraminal stenosis. T12-L1: Minimal disc bulge. No canal stenosis or foraminal stenosis. L1-L2: Minimal disc bulge. No canal stenosis or foraminal stenosis. L2-L3: Minimal disc bulge. Facet hypertrophy. No significant canal stenosis. Mild left foraminal s tenosis. L3-L4: Minimal disc bulge. Somewhat prominent bilateral facet hypertrophy. Mild canal stenosis. Mil d bilateral foraminal stenosis. L4-L5: Trace retrolisthesis of L4 on L5. Very mild left paracentral disc protrusion. Bilateral face t hypertrophy. No significant canal stenosis. Mild right foraminal narrowing and mild to moderate lef t foraminal narrowing. L5-S1: Bilateral facet hypertrophy. No canal stenosis. Mild left foraminal stenosis. IMPRESSION: 1. Multilevel facet arthropathy. 2. There is mild canal stenosis at L3-L4. 3. Mild left paracentral disc protrusion at L4-L5 4. Multilevel foraminal narrowing as described above. Reviewed by: Danie Becker MD on 09/10/2022 11:33 AM PST Approved by: Danie Becker MD on 09/10/2022 11:33 AM PST Station ID: [id number]
== END 2022-09-10 09:26 | disposition home or self-care (01) ==
LOC: DI 09:25
PROVIDERS: ATTEND Orthopaedic Surgery Sports Medicine
DX: M51.26 Other intervertebral disc displacement, lumbar region (principal); M47.817 Spondylosis without myelopathy or radiculopathy, lumbosacral region; M47.816 Spondylosis without myelopathy or radiculopathy, lumbar region; M51.36 Other intervertebral disc degeneration, lumbar region; M48.061 Spinal stenosis, lumbar region without neurogenic claudication

== ENCOUNTER 2022-10-15 08:34 | Outpatient (CLI) | payer OTHER ==
[2022-10-15 08:56] LABS: BASOPHILS % (AUTO) 0.6 %; EOSINOPHILS # (AUTO) 0.1 10^3/uL (0.0-0.7); EOSINOPHILS % (AUTO) 2.1 %; HCT - HEMATOCRIT 39.9 % (37.0-47.0); HGB - HEMOGLOBIN 13.1 g/dL (12.0-16.0); LYMPHOCYTES # (AUTO) 1.6 10^3/uL (1.5-3.5); LYMPHOCYTES % (AUTO) 33.9 %; MEAN CORPUSCULAR HGB CONC 32.8 g/dL (32.0-36.0); MEAN CORPUSCULAR VOLUME 91.5 fL (81.0-99.0); MEAN PLATELET VOLUME 11.2 fL (7.9-10.8); MONOCYTES # (AUTO) 0.4 10^3/uL (0.0-1.0); MONOCYTES % (AUTO) 7.9 %; NEUTROPHILS # (AUTO) 2.6 10^3/uL (1.5-6.6); NEUTROPHILS % (AUTO) 55.3 %; PLT - PLATELET COUNT 205 10^3/uL (130-450); RED BLOOD COUNT 4.36 10^6/uL (4.20-5.40); RED CELL DISTRIBUTION WIDTH 13.4 % (12.0-15.0); WHITE BLOOD COUNT 4.7 x10^3/uL (4.8-10.8)
[2022-10-15 09:06] LABS: CALCIUM 9.6 mg/dL (8.5-10.3); CREATININE 0.7 mg/dL (0.4-1.0); POTASSIUM 4.3 mmol/L (3.5-5.0)
[2022-10-15 09:08] LABS: INR 0.9 (0.8-1.2); PT - PROTHROMBIN TIME 10.5 secs (9.9-12.6)
[2022-10-16 08:59] LABS: BILIRUBIN,URINE NEGATIVE (NEGATIVE); GLUCOSE, URINE (UA) NEGATIVE (NEGATIVE); KETONES,URINE (UA) NEGATIVE (NEGATIVE); LEUKOCYTE ESTERASE, URINE NEGATIVE (NEGATIVE); NITRITE,URINE NEGATIVE (NEGATIVE); OCCULT BLOOD,URINE TRACE-INTA (NEGATIVE); PROTEIN,URINE NEGATIVE (NEGATIVE); UROBILINOGEN,URINE 0.2 (NORMAL) E.U./dL (NORMAL)
[2022-10-16 09:02] LABS: CLARITY,URINE CLEAR (CLEAR)
[2022-10-16 09:12] LABS: BACTERIA,URINE Rare /HPF (None Seen); RBC,URINE 0-5 /HPF (0-5); SQUAMOUS EPITHELIAL CELL,UR FEW Squamous (<= Few); WBC,URINE 0-3 /HPF (0-5)
== END 2022-10-15 08:35 | disposition home or self-care (01) ==
LOC: LAB 08:34
PROVIDERS: ATTEND Orthopaedic Surgery Sports Medicine
DX: Z01.812 Encounter for preprocedural laboratory examination (principal); Z79.01 Long term (current) use of anticoagulants; D50.9 Iron deficiency anemia, unspecified; N39.0 Urinary tract infection, site not specified
CPT/HCPCS: 36415; 80048; 81001; 85025; 85610; 87086

== ENCOUNTER → 2022-10-16 | Outpatient (CLI) | payer OTHER ==
[2022-10-16 08:59] LABS: BILIRUBIN,URINE NEGATIVE (NEGATIVE); GLUCOSE, URINE (UA) NEGATIVE (NEGATIVE); KETONES,URINE (UA) NEGATIVE (NEGATIVE); LEUKOCYTE ESTERASE, URINE NEGATIVE (NEGATIVE); NITRITE,URINE NEGATIVE (NEGATIVE); OCCULT BLOOD,URINE TRACE-INTA (NEGATIVE); PROTEIN,URINE NEGATIVE (NEGATIVE); UROBILINOGEN,URINE 0.2 (NORMAL) E.U./dL (NORMAL)
[2022-10-16 09:02] LABS: CLARITY,URINE CLEAR (CLEAR)
[2022-10-16 09:12] LABS: BACTERIA,URINE Rare /HPF (None Seen); RBC,URINE 0-5 /HPF (0-5); SQUAMOUS EPITHELIAL CELL,UR FEW Squamous (<= Few); WBC,URINE 0-3 /HPF (0-5)
== END ==
LOC: LAB 08:00
PROVIDERS: ATTEND Orthopaedic Surgery Sports Medicine
DX: Z01.812 Encounter for preprocedural laboratory examination (principal); Z79.01 Long term (current) use of anticoagulants; D50.9 Iron deficiency anemia, unspecified; N39.0 Urinary tract infection, site not specified
CPT/HCPCS: 81001; 87086

== ENCOUNTER 2022-10-24 07:10 | Outpatient (CLI) | payer OTHER | END 2022-10-24 07:11 | disposition home or self-care (01) | LOC: LAB 07:10 | DX: Z20.822 Contact with and (suspected) exposure to COVID-19 (principal) ==

== ENCOUNTER 2023-02-21 07:14 | Outpatient (CLI) | payer OTHER ==
[2023-02-21 07:35] LABS: BASOPHILS % (AUTO) 0.5 %; EOSINOPHILS # (AUTO) 0.1 10^3/uL (0.0-0.7); EOSINOPHILS % (AUTO) 1.9 %; HCT - HEMATOCRIT 42.9 % (37.0-47.0); HGB - HEMOGLOBIN 13.9 g/dL (12.0-16.0); LYMPHOCYTES # (AUTO) 1.8 10^3/uL (1.5-3.5); LYMPHOCYTES % (AUTO) 42.3 %; MEAN CORPUSCULAR HEMOGLOBIN 29.3 pg (27.0-31.0); MEAN CORPUSCULAR HGB CONC 32.4 g/dL (32.0-36.0); MEAN CORPUSCULAR VOLUME 90.5 fL (81.0-99.0); MEAN PLATELET VOLUME 11.5 fL (7.9-10.8); MONOCYTES # (AUTO) 0.3 10^3/uL (0.0-1.0); MONOCYTES % (AUTO) 7.7 %; NEUTROPHILS % (AUTO) 47.6 %; PLT - PLATELET COUNT 199 10^3/uL (130-450); RED BLOOD COUNT 4.74 10^6/uL (4.20-5.40); RED CELL DISTRIBUTION WIDTH 13.6 % (12.0-15.0); WHITE BLOOD COUNT 4.2 x10^3/uL (4.8-10.8)
[2023-02-21 07:42] LABS: ALBUMIN 4.4 g/dL (3.2-5.5); ALBUMIN/GLOBULIN RATIO 1.5 (1.0-2.2); ALKALINE PHOSPHATASE 69 IU/L (42-121); ALT ALANINE AMINOTRANSFERASE 19 IU/L (10-60); AST ASPARTATE AMINOTRANSFERASE 19 IU/L (10-42); BILIRUBIN,TOTAL 0.7 mg/dL (0.2-1.0); BUN - BLOOD UREA NITROGEN 20 mg/dL (6-20); CALCIUM 9.9 mg/dL (8.5-10.3); CARBON DIOXIDE - CO2 27 mmol/L (21-32); CHLORIDE 102 mmol/L (101-111); CHOL/HDL RATIO 4.5 (<4.4); CHOLESTEROL 243 mg/dL; CREATININE 0.8 mg/dL (0.4-1.0); GFR - MDRD 74 (>89); GLUCOSE 116 mg/dL (70-100); HDL CHOLESTEROL 54 mg/dL; LDL CHOLESTEROL,CALCULATED 155 mg/dL; LDL/HDL RATIO 2.9 (<4.4); POTASSIUM 4.1 mmol/L (3.5-5.0); SODIUM 140 mmol/L (135-145); TOTAL PROTEIN 7.4 g/dL (6.7-8.2); TRIGLYCERIDES 170 mg/dL; VLDL CHOLESTEROL 34 mg/dL
[2023-02-21 07:54] LABS: THYROID STIMULATING HORMONE 1.38 uIU/mL (0.34-5.60)
[2023-02-21 13:53] LABS: ESTIMATED AVERAGE GLUCOSE 126 mg/dL (70-100)
== END 2023-02-21 07:15 | disposition home or self-care (01) ==
LOC: LAB 07:14
PROVIDERS: ATTEND Family Medicine
DX: E87.6 Hypokalemia (principal); M16.11 Unilateral primary osteoarthritis, right hip; R45.86 Emotional lability; R20.8 Other disturbances of skin sensation; M24.10 Other articular cartilage disorders, unspecified site; E78.5 Hyperlipidemia, unspecified; G90.50 Complex regional pain syndrome I, unspecified
CPT/HCPCS: 36415; 80053; 80061; 83036; 83721; 84443; 85025

== ENCOUNTER 2023-04-03 05:00 | Emergency (ER) | payer OTHER ==
--- NOTE | 2023-04-03 05:12 | ED Physician Documentation ---
History of Present Illness - Stated complaint Stated Complaint: SOA - History obtained from History obtained from: Patient - Additonal information Additional information: HPI from patient. Patient was driven to the ER private vehicle (patient did not drive self). HPI is somewhat limited due to patient being in obvious and extreme discomfort on initial evaluation. Patient complains of midline low chest pain that began 2 days ago without specific inciting event. She denies ever having this pain in the past. Since the onset of the pain, it has been episodic, with increasingly frequent and intense episodes. Tonight, the episodes have become severe and associated with nausea and vomiting as well as shortness of breath. There are no ameliorating factors. She does note that p.o. intake seems to exacerbate the pain. She has no known cardiac history and denies any leg pain or swelling. There is no pleuritic component to the pain, and movement has no effect on the symptoms. She denies any heavy and/or regular alcohol intake. Review of Systems Constitutional: reports: Sweats. denies: Fever Cardiac: reports: Chest pain / pressure. denies: Palpitations, Pedal edema, Calf pain Respiratory: reports: Dyspnea. denies: Cough GI: reports: Abdominal Pain, Nausea, Vomiting. denies: Abdominal Swelling, Constipation, Diarrhea, Hematemesis : denies: Dysuria, Frequency Musculoskeletal: denies: Back pain Neurologic: reports: Headache (Patient says she has a generalized headache that is consistent with previous migraine headaches) PD PAST MEDICAL HISTORY - Past Medical History Cardiovascular: Hypertension, Other Respiratory: None Endocrine/Autoimmune: None GI: None : None HEENT: Other Psych: None Musculoskeletal: Osteoarthritis, Chronic back pain Derm: None - Past Surgical History Past Surgical History: Yes General: Colonoscopy, Other Ortho: Arthroscopic surgery /[employer]: Tubal ligation, Hysterectomy - Present Medications Home Medications: Ambulatory Orders Medication Instructions Recorded Confirmed Aspirin [Aspir 81] 162 mg PO DAILY 04/30/15 11/24/21 Calcium Carbonate/Vitamin D3 1 tab PO DAILY 04/30/15 11/24/21 [Calcium 600 + D Tablet] Fexofenadine [Eli] 180 mg PO DAILY PRN 04/30/15 11/24/21 Flaxseed Oil [Flax Seed Oil] 1,000 mg PO DAILY 04/30/15 11/24/21 Milk Thistle 175 mg PO DAILY 04/30/15 11/24/21 Multivitamin [Multivitamins] 1 each PO DAILY 04/30/15 11/24/21 Turmeric Root Extract [Turmeric] 500 mg PO DAILY 04/30/15 11/24/21 Lidocaine Patch 5% [Lidoderm Patch] 1 patch TOP UD 05/09/17 11/24/21 Naproxen [Naprosyn] 500 mg PO BID #15 tablet 05/09/17 11/24/21 Potassium Chloride 1 tab PO DAILY 11/24/21 11/24/21 Pregabalin [Lyrica] 150 mg PO DAILY 11/24/21 11/24/21 - Allergies Allergies/Adverse Reactions: Allergies Allergy/AdvReac Type Severity Reaction Status Date / Time adhesive tape AdvReac Intermediate Redness Verified 05/03/22 23:53 - Social History Does the pt smoke?: No Smoking Status: Never smoker Does the pt drink ETOH?: Yes Does the pt have substance abuse?: No - Immunizations Immunizations are current?: Yes - POLST Patient has POLST: No PD ED PE NORMAL - Vitals Vital signs reviewed: Yes - General General: Alert and oriented X 3, Well developed/nourished, Other (obvious and severe painful distress, clutching at her midline lower chest and upper abdomen, frequently vomiting on arrival but this has abated by the time of my HPI) - Neck Neck: Supple, no meningeal sign - Cardiac Cardiac: RRR, No murmur, No gallop, No rub - Respiratory Respiratory: No respiratory distress, Clear bilaterally - Abdomen Abdomen: Normal bowel sounds, Soft, Non distended, Other (mild TTP across upper abdomen) - Extremities Extremities: No edema - Neuro Neuro: Alert and oriented X 3 Results - Vitals Vitals: Oxygen O2 Source Room air Oxygen Flow Rate 2 - EKG (time done) No standard instances EKG releavant findings:: EKG personally interpreted by author of this note. Relevant findings are: Rate: Rate (enter#) (79) Rhythm: NSR [place]: Other (borderline LAD) Intervals: Normal SC QRS: Normal Ischemia: Normal ST segments - Labs Labs: Laboratory Tests 04/03/23 04/03/23 04/03/23 05:17 05:17 05:17 WBC 12.4 H RBC 5.03 Hgb 14.7 Hct 44.1 MCV 87.7 MCH 29.2 MCHC 33.3 RDW 13.8 Plt Count 263 MPV 11.9 H Neut # (Auto) 11.1 H Lymph # (Auto) 0.9 L [place] # (Auto) 0.4 Eos # (Auto) 0.0 Baso # (Auto) 0.0 Absolute Nucleated RBC 0.00 Nucleated RBC % 0.0 D-Dimer Sodium 140 Potassium 3.4 L Chloride 101 Carbon Dioxide 24 Anion Gap 15.0 H BUN 18 Creatinine 0.9 Estimated GFR (MDRD) 65 L Glucose 198 H Calcium 10.2 Total Bilirubin 1.2 H AST 23 ALT 20 Alkaline Phosphatase 71 Troponin I High Sens 187.6 H* Total Protein 7.9 Albumin 4.7 Globulin 3.2 Albumin/Globulin Ratio 1.5 Lipase 29 04/03/23 04/03/23 06:41 08:03 WBC RBC Hgb Hct MCV MCH MCHC RDW Plt Count MPV Neut # (Auto) Lymph # (Auto) [place] # (Auto) Eos # (Auto) Baso # (Auto) Absolute Nucleated RBC Nucleated RBC % D-Dimer 307.8 H Sodium Potassium Chloride Carbon Dioxide Anion Gap BUN Creatinine Estimated GFR (MDRD) Glucose Calcium Total Bilirubin AST ALT Alkaline Phosphatase Troponin I High Sens 662.1 H* Total Protein Albumin Globulin Albumin/Globulin Ratio Lipase - Rads (name of study) CTA chest Relevant Findings:: Prelim report reviewed, See rad report CT A/P with IV contrast Relevant Findings:: Prelim report reviewed, See rad report PD Medical Decision Making - ED course Complexity details: reviewed results, re-evaluated patient, considered differential, d/w patient ED course: Patient is in obvious and severe painful distress on arrival, with frequent vomiting, mildly diaphoretic. Shortly after being placed in the room in the ER, the pain and the vomiting began to subside without any specific intervention. There is questionable tenderness to palpation of the upper abdomen (she indicates some degree of discomfort when I palpate, particularly in the epigastrium, though she also indicates it worsens the nausea and thus it is unclear to what degree she is tender versus having worsening nausea with this palpation). IV is established and she is given IV normal saline, 4 mg of IV Zofran, and 1 mg of IV Dilaudid. Shortly after being given the Dilaudid, it was noted that she had a pulse oximetry reading of 77% with a good pleth on the monitor. I immediately checked on the patient, and it was apparent that she was hypopneic, likely due to the improvement in the pain and the effect of the Dilaudid. With light tactile stimulation, she was able to be woken and followed instruction to take deep breaths, which rapidly improved her pulse ox to the mid 90s. As a precaution, 2 L of nasal cannula were placed to help maintain adequate saturation. She then requested potassium, says she takes 10 meq potassium orally every day. She says she is requesting this because she is having cramping pains in her extremities, and she thinks that the potassium would help with this. At that point, the potassium level had returned and was 3.4. While this represents a minimal hypokalemia, it was reasonable to give her the potassium, which was given IV 10meq KCL. She then requested naratriptan which she takes as needed for migraine headache, saying that she currently has a migraine headache. Unfortunately, we do not have this medication in stock, but I offered sumatriptan, which she says also has worked very well for her migraines in the past. Thus, she is given 6 mg subcu sumatriptan. There are no concerning findings on her EKG, but, unfortunately, her high- sensitivity troponin is elevated at 187. A D-dimer is ordered, and the result returns minimally elevated (307). At this point, CTA of the chest is ordered along with CT of abdomen pelvis with IV contrast. The studies are ordered due to the unclear nature/location of the pain (cardiac and/or thoracic based pain versus upper abdominal pain, with vascular issues such as aneurysm or dissection also on the differential). The results of these tests are pending at the end of my shift, and thus the care of the patient is turned over to the oncoming ER physician (Dr. Montague) at end of my shift. Although the dilaudid was associated with significant improvement in her pain, without approximately one hour, she had recurrence of the pain which was again severe, with patient moaning in pain and clutching at her chest and upper abdomen. She is given a repeat dose of IV dilaudid which again seemed to significantly help with her pain. She was given a second dose of IV zofran, as the pain was again associated with n/v. Departure - Departure Disposition: 02 Transfer Acute Care Hosp Clinical Impression: Substernal chest pain, Elevated troponin, Non-ST elevated myocardial infarction (non-STEMI) Condition: Stable Discharge Date/Time: 04/03/23 12:28
[2023-04-03] MEDS ORDERED: HYDROmorphone 1 MG/ML CARPUJECT IVP STA (05:18)
[2023-04-03] MEDS ORDERED: SODIUM CHLORIDE 0.9% 1,000 ML IV STA (05:18)
[2023-04-03] MEDS ORDERED: ONDANSETRON 4 MG/2 ML VIAL IVP STA ×2 (05:18→07:34)
[2023-04-03 05:23] LABS: BASOPHILS % (AUTO) 0.3 %; HCT - HEMATOCRIT 44.1 % (37.0-47.0); HGB - HEMOGLOBIN 14.7 g/dL (12.0-16.0); LYMPHOCYTES # (AUTO) 0.9 10^3/uL (1.5-3.5); LYMPHOCYTES % (AUTO) 7.6 %; MEAN CORPUSCULAR HEMOGLOBIN 29.2 pg (27.0-31.0); MEAN CORPUSCULAR HGB CONC 33.3 g/dL (32.0-36.0); MEAN CORPUSCULAR VOLUME 87.7 fL (81.0-99.0); MEAN PLATELET VOLUME 11.9 fL (7.9-10.8); MONOCYTES # (AUTO) 0.4 10^3/uL (0.0-1.0); MONOCYTES % (AUTO) 2.8 %; NEUTROPHILS # (AUTO) 11.1 10^3/uL (1.5-6.6); PLT - PLATELET COUNT 263 10^3/uL (130-450); RED BLOOD COUNT 5.03 10^6/uL (4.20-5.40); RED CELL DISTRIBUTION WIDTH 13.8 % (12.0-15.0); WHITE BLOOD COUNT 12.4 x10^3/uL (4.8-10.8)
[2023-04-03 05:34] LABS: ALBUMIN 4.7 g/dL (3.2-5.5); ALBUMIN/GLOBULIN RATIO 1.5 (1.0-2.2); BILIRUBIN,TOTAL 1.2 mg/dL (0.2-1.0); CALCIUM 10.2 mg/dL (8.5-10.3); CREATININE 0.9 mg/dL (0.4-1.0); POTASSIUM 3.4 mmol/L (3.5-5.0); TOTAL PROTEIN 7.9 g/dL (6.7-8.2)
[2023-04-03] MEDS ORDERED: POTASSIUM CHLOR 10 MEQ/100 ML 10 MEQ/100 ML BAG IV STA (05:45)
[2023-04-03] MEDS ORDERED: SUMAtriptan 6 MG/0.5 ML VIAL SUBQ STA (05:52)
[2023-04-03] MEDS ORDERED: iohexoL-300 100 ML VIAL ONE (07:42)
[2023-04-03] MEDS: HYDROmorphone 1 MG/ML CARPUJECT IVP STA ×2 (07:48→07:53)
[2023-04-03] MEDS ORDERED: HYDROmorphone 1 MG/ML CARPUJECT ONE (07:48)
[2023-04-03] MEDS ORDERED: PANTOPRAZOLE 40 MG VIAL IVP STA (07:51)
[2023-04-03] MEDS ORDERED: iohexoL-300 100 ML VIAL IVP ONE (08:48)
--- NOTE | 2023-04-03 08:58 | CT Report ---
PROCEDURE: ANGIO CHEST W/WO INDICATIONS: lower midline chest pain CONTRAST: 100ml omni 300 TECHNIQUE: After the administration of intravenous contrast, 2 mm axial images were acquired from the pulmonary apices to the posterior costophrenic angles during the arterial phase. In addition, 1 mm lung kernel and 5 mm soft tissue kernel reconstructions were performed. 3-dimensional coronal oblique maximum int ensity projection (MIP) reformats, 8 mm axial MIP, and 5 mm coronal and sagittal MPR reformats were t hen performed through the thorax. For radiation dose reduction, the following was used: automated exp osure control, adjustment of mA and/or kV according to patient size. COMPARISON: None FINDINGS: Image quality: Study degraded by suboptimal timing of intravenous contrast bolus. Large vessels: No filling defects within the opacified pulmonary arteries, accounting for motion and contrast timing. No evidence of acute aortic syndrome or aortic aneurysm. Lungs and pleura: No focal consolidation. Mild diffuse bilateral groundglass opacities. Bibasilar ate lectasis. No pleural effusions. No pneumothorax. No suspicious pulmonary nodules which require follo w up. No septal thickening or nodularity. Mediastinum: Heart size is normal. No pericardial effusion. No large vessel abnormality. No mediastin al adenopathy by size criteria. Chest wall and lower neck: Thyroid is unremarkable. No axillary or supraclavicular adenopathy by size . Bones: No aggressive osseous abnormality. No acute compression fracture. Upper Abdomen: Unremarkable. Small hiatal hernia. IMPRESSION: CT angiogram of the chest without acute pulmonary emboli. No evidence for acute right-sided heart str ain. No focal airspace disease. Mild diffuse groundglass opacities may be related to hypoventilatory [place] es versus possible infectious or inflammatory process. Other chronic findings as above. Reviewed by: Beny Segundo MD on 04/03/2023 8:57 AM PDT Approved by: Beny Segundo MD on 04/03/2023 8:57 AM PDT Station ID: [id number]
[2023-04-03] MEDS ORDERED: NITROGLYCERIN 50 MG/250 ML 50 MG/250 ML BOTTLE IV STA (09:13)
[2023-04-03] MEDS ORDERED: ATORVASTATIN 10 MG TABLET PO STA (09:17)
[2023-04-03] MEDS ORDERED: HYDROmorphone 0.5 MG/0.5 ML SYRINGE IVP STA (09:28)
[2023-04-03] MEDS ORDERED: METOCLOPRAMIDE 10 MG/2 ML VIAL IVP STA (09:29)
--- NOTE | 2023-04-03 09:32 | ED Physician Documentation ---
ED Addendum - Addendum Addendum: 04/03/23 09:29 Assuming care of the patient from Dr. Bagley. She presented with upper abdominal to substernal chest pain. She does have a GI component to it with feeling worse with swallowing. However she does have a substernal component. Her initial troponin had been elevated in the 100s with a repeat now in the 600s consistent with an acute myocardial injury. The initial and repeat EKGs did not show ST elevations nor obvious ischemic changes. She completed a CT angio of the chest and CT of the abdomen. The chest component is read by the radiologist without any acute abnormalities of the aorta underlying tissue and no PEs. Upper abdomen is clear. Abdominal CT reading is still pending. The patient is starting to have some return of pain. We will repeat the hydromorphone. She is nauseous as well and can give her some antiemetic. At this point we will treat as a non-STEMI but with still recurring pain episodes, concern would be for unstable angina as well. We will look for transfers to other facilities. At this point we are initiating treatment as an non-STEMI with aspirin, atorvastatin, nitroglycerin and heparin. We will give her some antacid as well as she does feel there is some esophageal or gastric component. I advised the patient about the need for transfer for more extensive cardiology testing. This reinforces what Dr. Bagley had been talking with her about earlier. The patient is agreeable.
--- NOTE | 2023-04-03 09:36 | CT Report ---
PROCEDURE: ABDOMEN/PELVIS W INDICATIONS: upper abdominal pain CONTRAST: 100ml omni 300 TECHNIQUE: After the administration of weight appropriate dose of intravenous contrast, 5 mm thick sections acqu ired from the diaphragms to the symphysis. 5 mm thick coronal and sagittal reformats were acquired. For radiation dose reduction, the following was used: automated exposure control, adjustment of mA and/or kV according to patient size. COMPARISON: 02/24/2021 FINDINGS: Image quality: Excellent. Lung bases and heart: Bibasilar atelectasis. Small hiatal hernia. Visualized portions of the heart ap pear unremarkable. Liver: No solid mass. Gallbladder and biliary tree: No radiopaque stones or wall thickening. No biliary dilation. Spleen: No splenomegaly. Pancreas: No pancreatic ductal dilation. Adrenals: No adrenal nodule. Kidneys and ureters: No hydronephrosis. No renal cystic lesion which requires follow up. No solid mas s. Bowel and peritoneum: No bowel distention or evidence for obstruction. There is suggestion of mild ci rcumferential wall thickening of the distal stomach and pylorus. No adjacent free air or free fluid. No significant inflammatory stranding. Visualized colon appear unremarkable. Appendix is normal. Lymph nodes: No central or retroperitoneal adenopathy. Vessels: No infrarenal aortic aneurysm. PELVIS Reproductive organs: Unremarkable. Bladder: No abnormal wall thickening, accounting for underdistension. Pelvic lymph nodes: No pelvic adenopathy by size criteria. Bones: No aggressive osseous abnormality. Other: No significant ventral or inguinal hernia. IMPRESSION: 1. Findings suggestive of gastritis and probable peptic ulcer disease. No evidence for perforation. 2. Small hiatal hernia. 3. Normal appendix. Reviewed by: Beny Segundo MD on 04/03/2023 9:35 AM PDT Approved by: Beny Segundo MD on 04/03/2023 9:35 AM PDT Station ID: [id number]
[2023-04-03] MEDS: ASPIRIN CHEW 81 MG TABLET PO STA ×2 (09:57→10:03)
[2023-04-03] MEDS: MAG HYDROX/AL HYDROX/SIMETH 30 ML UDC PO STA ×2 (09:57→10:03)
[2023-04-03] MEDS ORDERED: HEPARIN 25000UNITS/500ML (D5W) 25,000 UNIT/500 ML BAG IV SCH (10:00)
[2023-04-03 12:18] VITALS: BP 174/96
== END 2023-04-03 12:28 | disposition short-term general hospital (02) ==
LOC: ED 05:00
DX: I21.4 Non-ST elevation (NSTEMI) myocardial infarction (principal); R07.89 Other chest pain; R77.8 Other specified abnormalities of plasma proteins; I10 Essential (primary) hypertension; Z79.82 Long term (current) use of aspirin; Z79.899 Other long term (current) drug therapy
CPT/HCPCS: 36415; 71275; 74177; 80053; 83690; 84484; 85025; 85379; 93005; 96365; 96372; 96375; 96376; 99284; 99285; A9270; J1170; J2765; Q9967

== ENCOUNTER 2023-04-03 12:26 | Outpatient (CLI) | payer OTHER | END 2023-04-03 23:59 | disposition short-term general hospital (02) | LOC: EMS 12:26 | PROVIDERS: ATTEND Emergency Medicine | DX: I21.4 Non-ST elevation (NSTEMI) myocardial infarction (principal) | CPT/HCPCS: A0425; A0426 ==

== ENCOUNTER 2023-04-12 07:02 | Outpatient (CLI) | payer OTHER ==
--- NOTE | 2023-04-12 16:44 | MRI Report ---
PROCEDURE: KNEE WO - LT INDICATIONS: LEFT KNEE PAIN TECHNIQUE: Noncontrast sagittal PD fast spin echo and T2 fast spin echo with fat saturation, sagittal 3-D gradie nt sequence with fat saturation; coronal T1 spin echo and PD fast spin echo with fat saturation, and axial PD fast spin echo with fat saturation through the knee. COMPARISON: None. FINDINGS: Image quality: Excellent. Menisci: Mild T2 signal elevation at the posterior meniscocapsular junction of the posterior horn med ial meniscus. Lateral meniscus is within normal limits. Cruciate ligaments: The anterior and posterior cruciate ligaments appear intact. Medial structures: The medial collateral ligament appears intact. The posterior oblique ligament, s emimembranosus tendon insertions, and oblique popliteal ligament, and meniscocapsular junction appear intact. Visualized portions of the pes anserinus tendons appear normal. No abnormal bursal fluid. Lateral structures: The lateral collateral ligament, long and short heads of the biceps femoris tend on appear intact. The popliteus tendon appears normal. Iliotibial band appears normal. Anterior structures: The quadriceps and patellar tendons appear intact. Patellar alignment is justino l. No femoral trochlear dysplasia or ventral trochlear prominence. No edema in the infrapatellar fa t pad. Bones and cartilage: No bone marrow contusions or fractures. There is mild subchondral degenerative marrow edema within the lateral patellar facet and lateral femoral trochlea. Moderate tricompartmenta l periarticular osteophyte formation. Mild articular cartilage loss diffusely overlies the weightbear ing aspects of the medial lateral compartments. Severe articular cartilage loss overlies the patellar apex as well as the lateral patellar facet and lateral femoral trochlea. Joint space: There is a small knee joint effusion and a moderate Adamson's cyst. Normal appearing syn ovial plicae are incidentally noted. IMPRESSION: 1. Tricompartmental osteoarthritis with associated articular cartilage loss. 2. Meniscal capsular junction injury involving the posterior horn medial meniscus. 3. Knee joint effusion and Adamson's cyst. Reviewed by: Estelle Boyd MD on 04/12/2023 4:43 PM PDT Approved by: Estelle Boyd MD on 04/12/2023 4:43 PM PDT Station ID: [id number]
== END 2023-04-12 07:03 | disposition home or self-care (01) ==
LOC: DI 07:02
PROVIDERS: ATTEND Orthopaedic Surgery Sports Medicine
DX: M17.12 Unilateral primary osteoarthritis, left knee (principal); M25.462 Effusion, left knee; M71.22 Synovial cyst of popliteal space [Baker], left knee

== ENCOUNTER 2023-08-27 06:28 | Outpatient (CLI) | payer OTHER ==
[2023-08-27 07:07] LABS: BUN - BLOOD UREA NITROGEN 18 mg/dL (6-20); CALCIUM 9.7 mg/dL (8.5-10.3); CARBON DIOXIDE - CO2 31 mmol/L (21-32); CHLORIDE 105 mmol/L (101-111); CHOL/HDL RATIO 2.3 (<4.4); CHOLESTEROL 138 mg/dL; CREATININE 0.7 mg/dL (0.6-1.3); GFR - MDRD 86 (>89); GLUCOSE 110 mg/dL (74-104); HDL CHOLESTEROL 59 mg/dL; LDL CHOLESTEROL,CALCULATED 61 mg/dL; POTASSIUM 4.2 mmol/L (3.5-4.5); SODIUM 140 mmol/L (135-145); TRIGLYCERIDES 91 mg/dL (48-352); VLDL CHOLESTEROL 18 mg/dL
[2023-08-29 07:45] LABS: ESTIMATED AVERAGE GLUCOSE 123 mg/dL (70-100); HEMOGLOBIN A1c% 5.9 % (4.27-6.07)
== END 2023-08-27 06:29 | disposition home or self-care (01) ==
LOC: LAB 06:28
PROVIDERS: ATTEND Family Medicine
DX: E78.1 Pure hyperglyceridemia (principal); R73.03 Prediabetes
CPT/HCPCS: 36415; 80048; 80061; 83036; 83721

== ENCOUNTER 2023-09-04 07:38 | Outpatient (CLI) | payer OTHER ==
[2023-09-04 08:11] LABS: BASOPHILS % (AUTO) 0.6 %; EOSINOPHILS # (AUTO) 0.2 10^3/uL (0.0-0.7); EOSINOPHILS % (AUTO) 3.6 %; HCT - HEMATOCRIT 38.6 % (37.0-47.0); HGB - HEMOGLOBIN 12.5 g/dL (12.0-16.0); LYMPHOCYTES # (AUTO) 1.6 10^3/uL (1.5-3.5); LYMPHOCYTES % (AUTO) 32.9 %; MEAN CORPUSCULAR HEMOGLOBIN 29.8 pg (27.0-31.0); MEAN CORPUSCULAR HGB CONC 32.4 g/dL (32.0-36.0); MEAN CORPUSCULAR VOLUME 91.9 fL (81.0-99.0); MONOCYTES # (AUTO) 0.4 10^3/uL (0.0-1.0); MONOCYTES % (AUTO) 7.9 %; NEUTROPHILS # (AUTO) 2.7 10^3/uL (1.5-6.6); NEUTROPHILS % (AUTO) 54.8 %; PLT - PLATELET COUNT 198 10^3/uL (130-450); RED CELL DISTRIBUTION WIDTH 13.9 % (12.0-15.0)
[2023-09-04 08:30] LABS: ALBUMIN 4.4 g/dL (3.2-5.5); ALBUMIN/GLOBULIN RATIO 2.6 (1.0-2.2); BILIRUBIN,TOTAL 1.1 mg/dL (0.2-1.0); CALCIUM 9.5 mg/dL (8.5-10.3); CREATININE 0.6 mg/dL (0.6-1.3); POTASSIUM 4.4 mmol/L (3.5-4.5); TOTAL PROTEIN 6.1 g/dL (6.4-8.9)
[2023-09-04 10:14] LABS: BILIRUBIN,URINE NEGATIVE (NEGATIVE); GLUCOSE, URINE (UA) NEGATIVE (NEGATIVE); KETONES,URINE (UA) NEGATIVE (NEGATIVE); LEUKOCYTE ESTERASE, URINE NEGATIVE (NEGATIVE); NITRITE,URINE NEGATIVE (NEGATIVE); OCCULT BLOOD,URINE TRACE-INTA (NEGATIVE); PROTEIN,URINE NEGATIVE (NEGATIVE); UROBILINOGEN,URINE 0.2 (NORMAL) E.U./dL (NORMAL)
[2023-09-04 10:28] LABS: BACTERIA,URINE None Seen /HPF (None Seen); CLARITY,URINE CLEAR (CLEAR); RBC,URINE None Seen /HPF (0-5); SQUAMOUS EPITHELIAL CELL,UR NONE SEEN (<= Few); WBC,URINE 0-3 /HPF (0-5)
== END 2023-09-04 07:39 | disposition home or self-care (01) ==
LOC: LAB 07:38
PROVIDERS: ATTEND Orthopaedic Surgery Sports Medicine
DX: Z01.812 Encounter for preprocedural laboratory examination (principal); M17.12 Unilateral primary osteoarthritis, left knee; N39.0 Urinary tract infection, site not specified; D50.9 Iron deficiency anemia, unspecified; Z79.01 Long term (current) use of anticoagulants
CPT/HCPCS: 36415; 80053; 81001; 85025; 85610; 87640

== ENCOUNTER 2023-12-10 13:45 | Outpatient (CLI) | payer OTHER ==
[2023-12-10 14:26] LABS: CALCIUM 9.9 mg/dL (8.5-10.3); CREATININE 0.8 mg/dL (0.6-1.3)
[2023-12-10 19:59] LABS: ESTIMATED AVERAGE GLUCOSE 117 mg/dL (70-100); HEMOGLOBIN A1c% 5.7 % (4.27-6.07)
== END 2023-12-10 13:46 | disposition home or self-care (01) ==
LOC: LAB 13:45
PROVIDERS: ATTEND Family Medicine
DX: R73.03 Prediabetes (principal)
CPT/HCPCS: 36415; 80048; 83036

== ENCOUNTER 2024-05-10 06:46 | Outpatient (CLI) | payer OTHER ==
[2024-05-10 07:17] LABS: ALBUMIN 4.6 g/dL (3.2-5.5); ALBUMIN/GLOBULIN RATIO 2.3 (1.0-2.2); ALKALINE PHOSPHATASE 68 IU/L (42-121); ALT ALANINE AMINOTRANSFERASE 13 IU/L (10-60); AST ASPARTATE AMINOTRANSFERASE 15 IU/L (10-42); BILIRUBIN,TOTAL 0.8 mg/dL (0.2-1.0); BUN - BLOOD UREA NITROGEN 20 mg/dL (6-20); CARBON DIOXIDE - CO2 31 mmol/L (21-32); CHLORIDE 106 mmol/L (101-111); CHOL/HDL RATIO 2.4 (<4.4); CHOLESTEROL 130 mg/dL; CREATININE 0.8 mg/dL (0.6-1.3); GFR - MDRD 74 (>89); GLUCOSE 113 mg/dL (74-104); HDL CHOLESTEROL 54 mg/dL; LDL CHOLESTEROL,CALCULATED 62 mg/dL; LDL/HDL RATIO 1.1 (<4.4); POTASSIUM 4.6 mmol/L (3.5-4.5); SODIUM 140 mmol/L (135-145); TOTAL PROTEIN 6.6 g/dL (6.4-8.9); TRIGLYCERIDES 71 mg/dL; VLDL CHOLESTEROL 14 mg/dL
[2024-05-10 07:26] LABS: BASOPHILS % (AUTO) 0.8 %; EOSINOPHILS # (AUTO) 0.5 10^3/uL (0.0-0.7); EOSINOPHILS % (AUTO) 10.7 %; HCT - HEMATOCRIT 39.1 % (37.0-47.0); HGB - HEMOGLOBIN 12.8 g/dL (12.0-16.0); LYMPHOCYTES # (AUTO) 1.6 10^3/uL (1.5-3.5); MEAN CORPUSCULAR HEMOGLOBIN 30.3 pg (27.0-31.0); MEAN CORPUSCULAR HGB CONC 32.7 g/dL (32.0-36.0); MEAN CORPUSCULAR VOLUME 92.7 fL (81.0-99.0); MEAN PLATELET VOLUME 11.3 fL (7.9-10.8); MONOCYTES # (AUTO) 0.4 10^3/uL (0.0-1.0); MONOCYTES % (AUTO) 7.7 %; NEUTROPHILS # (AUTO) 2.5 10^3/uL (1.5-6.6); NEUTROPHILS % (AUTO) 48.8 %; PLT - PLATELET COUNT 179 10^3/uL (130-450); RED BLOOD COUNT 4.22 10^6/uL (4.20-5.40); RED CELL DISTRIBUTION WIDTH 14.1 % (12.0-15.0); WHITE BLOOD COUNT 5.1 x10^3/uL (4.8-10.8)
== END 2024-05-10 06:47 | disposition home or self-care (01) ==
LOC: LAB 06:46
PROVIDERS: ATTEND Family Medicine
DX: E78.1 Pure hyperglyceridemia (principal); M17.12 Unilateral primary osteoarthritis, left knee; I25.2 Old myocardial infarction; G90.513 Complex regional pain syndrome I of upper limb, bilateral; R73.03 Prediabetes
CPT/HCPCS: 36415; 80053; 80061; 83721; 84443; 85025